=== PATIENT | male | born 1990 | race Caucasian/White ===

== ENCOUNTER 2018-08-01 10:52 | Emergency (ER) | payer OTHER ==
[2018-08-01 11:00] VITALS: BP 134/81; PULSE 91; TEMP 98.2; BMI 28.6
[2018-08-01] MEDS ORDERED: ALBUTEROL SO4 2.5/IPRATROPIUM 0.5 INH SOL 3 ML VIAL.NEB. NEB ONE ×2 (12:01→12:04)
--- NOTE | 2018-08-01 12:07 | PDOC ---
History of Present Illness - General Chief Complaint: Shortness of Breath Stated Complaint: chest pain, sob Time Seen by Provider: 08/01/18 11:44 History Source: Patient Exam Limitations: No Limitations - History of Present Illness Initial Comments: 08/01/18 12:03 Patient came to emergency department with complaints of acute onset of fevers, chills this morning, a cough that caused him to be short of breath. 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 Denies earache or sore throat however has a moist cough with thick yellow phlegm. Has taken no medication for relief of same. Timing/Duration: reports: just prior to arrival, getting worse Severity: reports: mild, moderate Possible Cause: Yes: smoke exposure Associated Symptoms: reports: cough, dizziness, fever/chills, lightheadedness, nasal congestion Past History - Travel Traveled outside of the country in the last 30 days: No Close contact w/someone who was outside of country & ill: No - Past Medical History Allergies/Adverse Reactions: Allergies Allergy/AdvReac Type Severity Reaction Status Date / Time No Known Allergies Allergy Verified 08/01/18 11:00 Home Medications: Ambulatory Orders NK [No Known Home Medication] 08/01/18 COPD: No DVT: No Diabetes: Yes (Pre-diabetic) - Suicide/Smoking/Psychosocial Hx Smoking History: Current every day smoker Number of Cigarettes Smoked Daily: 20 Information on smoking cessation initiated: Yes 'Breaking Loose' booklet given: 08/01/18 Hx Alcohol Use: No Drug/Substance Use Hx: No Substance Use Type: None Review of Systems - Review of Systems Able to Perform ROS?: Yes Is the patient limited [place]ian proficient: Yes Constitutional: Yes: Symptoms Reported, See HPI, Chills, Fever, Malaise HEENTM: Yes: Symptoms Reported, See HPI, Nose Congestion Respiratory: Yes: Symptoms reported, See HPI, Cough. No: Wheezing Cardiac (ROS): No: Symptoms Reported ABD/GI: No: Symptoms Reported Integumentary: Yes: Symptoms Reported, See HPI All Other Systems: Reviewed and Negative *Physical Exam - Vital Signs Last Vital Signs Temp Pulse Resp BP Pulse Ox 98.2 F 91 H 17 134/81 100 08/01/18 10:57 08/01/18 10:57 08/01/18 10:57 08/01/18 10:57 08/01/18 10:57 - Physical Exam General Appearance: Yes: Nourished, Appropriately Dressed, Apparent Distress, Mild Distress HEENT: positive: DASH, Normal ENT Inspection, TMs Normal, Pharynx Normal, Nasal Congestion, Rhinorrhea. negative: Pharyngeal Erythema, Sinus Tenderness Neck: positive: Supple. negative: Tender Respiratory/Chest: positive: Lungs Clear, Normal Breath Sounds. negative: Rhonchi, Wheezing Gastrointestinal/Abdominal: positive: Normal Bowel Sounds, Soft. 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 Influenza test negative, no improvement or changes in breath sounds after DuoNeb therefore will continue conservative treatments. *DC/Admit/Observation/Transfer Diagnosis at time of Disposition: Upper respiratory infection, viral - Discharge Dispostion Disposition: HOME Condition at time of disposition: Stable Decision to Admit order: No - Referrals - Patient Instructions Printed Discharge Instructions: DI for Viral Upper Respiratory Infection -- Adult Additional Instructions: Rest, drink lots of fluids: Teas, water, soups, Pedialyte Saltwater gargles Steamy showers/seem to face break up mucus Avoid contact with others until fevers and cough resolved Lots of handwashing and good hygiene Continue [id number] medications for symptomatic relief Tylenol or Motrin for fever and pain Followup with private physician in one to 2 days as needed Return to emergency department for worsened symptoms, fevers, dehydration - Post Discharge Activity Forms/Work/School Notes: Back to Work
--- NOTE | 2018-08-02 22:08 | EKG ---
Test Reason : Blood Pressure : / mmHG Vent. Rate : 078 BPM Atrial Rate : 078 BPM P-R Int : 146 ms QRS Dur : 088 ms QT Int : 354 ms P-R-T Axes : 061 030 044 degrees QTc Int : 403 ms NORMAL SINUS RHYTHM NONSPECIFIC T WAVE ABNORMALITY ABNORMAL ECG WHEN COMPARED WITH ECG OF 06-OCT-2008 12:56, NO SIGNIFICANT CHANGE WAS FOUND Confirmed by PHYLLIS LEE MD ([id number]) on 08/02/2018 10:08:12 PM Referred By: Confirmed By:PHYLLSI LEE MD
== END 2018-08-01 13:09 | disposition home or self-care (01) ==
LOC: JER 10:52 → JERFT 10:52
PROC: 3E0F7GC Introduction of Other Therapeutic Substance into Respiratory Tract, Via Natural or Artificial Opening (ICD-10-PCS; principal; 2018-08-01)
DX: J06.9 Acute upper respiratory infection, unspecified (principal); F17.210 Nicotine dependence, cigarettes, uncomplicated; R73.03 Prediabetes
CPT/HCPCS: 87804; 93005; 93010; 94640; 99281-25; J7620

== ENCOUNTER 2019-09-15 16:55 | Emergency (ER) | payer OTHER ==
[2019-09-15 17:13] VITALS: BMI 30.2
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
[2019-09-15 18:05] LABS: BASO % 0.6 % (0-2.0); EOS % 9.7 % (0-4.5); HEMATOCRIT 40.2 % (35.4-49); HEMOGLOBIN 13.5 GM/dL (11.7-16.9); LYMPH % 28.7 % (8-40); MCH 28.9 pg (25.7-33.7); MCHC 33.6 g/dl (32.0-35.9); MEAN CELL VOLUME 85.9 fl (80-96); MEAN PLT VOLUME 8.6 fl (7.5-11.1); MONO % 8.7 % (3.8-10.2); NEUT % 52.3 % (42.8-82.8); PLATELET COUNT 205 K/MM3 (134-434); RBC 4.68 M/mm3 (4.00-5.60); RDW 15.7 % (11.9-15.9)
[2019-09-15 18:29] LABS: ALBUMIN 3.8 g/dl (3.4-5.0); BILIRUBIN,TOTAL 0.7 mg/dL (0.2-1); CALCIUM 8.8 mg/dL (8.5-10.1); CREATININE 1.1 mg/dL (0.55-1.3); POTASSIUM 3.8 mmol/L (3.5-5.1); TOT PROT 7.5 g/dl (6.4-8.2)
[2019-09-15 20:47] LABS: EPI CELLS 0 /HPF (0-5/HPF); HYALINE CASTS 1 /lpf (0-8); PH,URINE 6.5 (5.0-8.0); URINE APPEARANCE CLEAR; URINE BACTERIA 2636.4 /hpf (NEGATIVE); URINE BILIRUBIN NEGATIVE (NEGATIVE); URINE COLOR YELLOW; URINE GLUCOSE (UA) NEGATIVE (NEGATIVE); URINE KETONE NEGATIVE (NEGATIVE); URINE LEUK ESTERASE 2+ (NEGATIVE); URINE NITRITE NEGATIVE (NEGATIVE); URINE PROTEIN 2+ (NEGATIVE); URINE RBC 20 /hpf (0-4); URINE UROBILINOGEN 0.2 mg/dL (0.2-1.0); URINE WBC 30 /hpf (0-5)
[2019-09-15] MEDS ORDERED: CEPHALEXIN MONOHYDRATE 500 MG CAPSULE (UD) PO ONE (20:51)
[2019-09-15] MEDS ORDERED: CEPHALEXIN MONOHYDRATE 500 MG CAPSULE (UD) ONE (20:59)
[2019-09-15 21:21] VITALS: BP 115/62; PULSE 72; TEMP 98.1
[2019-09-15 21:35] LABS: INR 1.17 (0.83-1.09); PROTHROMBIN TIME (PATIENT) 13.8 SEC (9.7-13.0)
== END 2019-09-15 21:20 | disposition home or self-care (01) ==
LOC: JER 16:55
DX: N30.00 Acute cystitis without hematuria (principal); Z86.718 Personal history of other venous thrombosis and embolism; Z79.01 Long term (current) use of anticoagulants; T14.8XXS Other injury of unspecified body region, sequela; V29.9XXS Motorcycle rider (driver) (passenger) injured in unspecified traffic accident, sequela; R73.03 Prediabetes; Z87.891 Personal history of nicotine dependence
CPT/HCPCS: 36415; 76775-TC; 76856-TC; 80053; 81003; 85025; 85610; 87086; 87186; 99282-25

== ENCOUNTER 2021-05-31 17:06 | Emergency (ER) | payer OTHER ==
[2021-05-31 17:13] VITALS: BP 134/77; PULSE 96; TEMP 97.8; BMI 32.8
[2021-05-31 19:22] LABS: BASO % 0.4 % (0-2.0); EOS % 5.1 % (0-4.5); HEMATOCRIT 38.9 % (35.4-49); HEMOGLOBIN 13.3 GM/dL (11.7-16.9); LYMPH % 17.1 % (8-40); MCH 29.6 pg (25.7-33.7); MCHC 34.2 g/dl (32.0-35.9); MEAN CELL VOLUME 86.4 fl (80-96); MEAN PLT VOLUME 8.2 fl (7.5-11.1); MONO % 6.5 % (3.8-10.2); NEUT % 70.9 % (42.8-82.8); PLATELET COUNT 261 10^3/uL (134-434); RBC 4.51 M/mm3 (4.00-5.60); RDW 14.6 % (11.9-15.9); WHITE BLOOD COUNT 9.2 K/mm3 (4.0-10.0)
[2021-05-31 19:30] LABS: CALCIUM 9.1 mg/dL (8.5-10.1)
[2021-05-31 19:31] LABS: ALBUMIN 3.7 g/dl (3.4-5.0); BLOOD UREA NITROGEN 15.5 mg/dL (7-18)
[2021-05-31 19:34] LABS: CREATININE 1.1 mg/dL (0.55-1.3)
[2021-05-31 19:36] LABS: BILIRUBIN,TOTAL 0.4 mg/dL (0.2-1)
[2021-05-31 19:50] LABS: EPI CELLS >36 /uL (0-25.1); HYALINE CASTS 33 /uL (0-3.1); URINE APPEARANCE TURBID; URINE BACTERIA >9,000 /uL (0-1359); URINE BILIRUBIN NEGATIVE (NEGATIVE); URINE COLOR YELLOW; URINE GLUCOSE (UA) NEGATIVE (NEGATIVE); URINE KETONE TRACE (NEGATIVE); URINE LEUK ESTERASE 3+ (NEGATIVE); URINE NITRITE POSITIVE (NEGATIVE); URINE PROTEIN 3+ (NEGATIVE); URINE WBC 7772 /uL (0-25.8)
[2021-05-31] MEDS ORDERED: CEFTRIAXONE 1,000 MG in DEXTROSE 5%-WATER - 50 ML IVPB ONE (20:02)
[2021-05-31] MEDS ORDERED: CEFTRIAXONE 1 GM/50 ML BAG ONE (20:07)
[2021-05-31 20:55] LABS: URINE RBC 1577.9 /uL (0-23.9)
== END 2021-05-31 20:59 | disposition home or self-care (01) ==
LOC: JER 17:06
DX: N39.0 Urinary tract infection, site not specified (principal)
CPT/HCPCS: 36415; 71046-TC-FY; 80053; 81003; 85025; 87086; 87186; 96374; 99284-25

== ENCOUNTER 2021-06-23 11:30 | Emergency (ER) | payer OTHER ==
[2021-06-23 12:57] VITALS: BMI 32.8
[2021-06-23 13:14] LABS: BASO % 0.4 % (0-2.0); EOS % 5.2 % (0-4.5); HEMOGLOBIN 13.9 GM/dL (11.7-16.9); MCHC 33.9 g/dl (32.0-35.9); MEAN CELL VOLUME 85.6 fl (80-96); MONO % 5.7 % (3.8-10.2); NEUT % 65.7 % (42.8-82.8); PLATELET COUNT 260 10^3/uL (134-434); RBC 4.79 M/mm3 (4.00-5.60); RDW 14.6 % (11.9-15.9); WHITE BLOOD COUNT 7.5 K/mm3 (4.0-10.0)
[2021-06-23 13:32] LABS: CHLORIDE 108 mmol/L (98-107); SODIUM 141 mmol/L (136-145)
[2021-06-23] MEDS ORDERED: ALBUTEROL SO4 0.083% IH SOL 2.5 MG/3 ML VIAL.NEB. NEB ONE (13:32)
[2021-06-23 13:34] LABS: ALBUMIN 3.9 g/dl (3.4-5.0); CALCIUM 8.9 mg/dL (8.5-10.1)
[2021-06-23 13:35] LABS: ANION GAP 7 MMOL/L (8-16); BLOOD UREA NITROGEN 11.1 mg/dL (7-18); CO2 25 mmol/L (21-32); GLUCOSE,RANDOM 92 mg/dL (74-106)
[2021-06-23 13:38] LABS: CREATININE 0.9 mg/dL (0.55-1.3); SGOT/AST 15 U/L (15-37); SGPT/ALT 24 U/L (13-61)
[2021-06-23 13:39] LABS: BILIRUBIN,TOTAL 0.6 mg/dL (0.2-1); TOT PROT 7.3 g/dl (6.4-8.2)
[2021-06-23 13:40] LABS: ALK PHOS 80 U/L (45-117)
[2021-06-23 13:43] LABS: N-TERMINAL BNP 47.9 pg/ml (5-125)
[2021-06-23] MEDS ORDERED: ALBUTEROL SO4 HFA INHALER IH ONE ×2 (13:44→14:40)
[2021-06-23] MEDS ORDERED: GABAPENTIN 100 MG CAPSULE PO ONE (15:03)
[2021-06-23 15:40] VITALS: BP 106/59; PULSE 67; TEMP 97.7
== END 2021-06-23 15:52 ==
LOC: JER 11:30
PROC: 3E0F7GC Introduction of Other Therapeutic Substance into Respiratory Tract, Via Natural or Artificial Opening (ICD-10-PCS; principal; 2021-06-23)
DX: R07.9 Chest pain, unspecified (principal); R06.2 Wheezing
CPT/HCPCS: 36415; 71046-TC-FY; 80053; 82550; 82553; 83880; 84484; 85025; 85379; 93005; 93010; 99285-25

== ENCOUNTER 2021-07-06 18:47 | Emergency (ER) | payer MEDICARE, OTHER ==
[2021-07-06 18:52] VITALS: TEMP 98.4; BMI 32.8
[2021-07-06 21:01] LABS: BASO % 0.5 % (0-2.0); EOS % 3.8 % (0-4.5); HEMATOCRIT 44.1 % (35.4-49); HEMOGLOBIN 14.9 GM/dL (11.7-16.9); LYMPH % 22.4 % (8-40); MCH 28.8 pg (25.7-33.7); MCHC 33.9 g/dl (32.0-35.9); NEUT % 65.3 % (42.8-82.8); PLATELET COUNT 285 10^3/uL (134-434); RBC 5.19 M/mm3 (4.00-5.60); RDW 14.8 % (11.9-15.9); WHITE BLOOD COUNT 14.9 K/mm3 (4.0-10.0)
[2021-07-06 21:20] LABS: ALBUMIN 4.2 g/dl (3.4-5.0); CALCIUM 9.1 mg/dL (8.5-10.1)
[2021-07-06 21:21] LABS: BLOOD UREA NITROGEN 15.6 mg/dL (7-18)
[2021-07-06 21:24] LABS: CREATININE 1.3 mg/dL (0.55-1.3)
[2021-07-06 21:25] LABS: BILIRUBIN,TOTAL 0.4 mg/dL (0.2-1)
[2021-07-06 23:39] LABS: BASO % 0.3 % (0-2.0); EOS % 3.3 % (0-4.5); HEMATOCRIT 40.5 % (35.4-49); HEMOGLOBIN 13.7 GM/dL (11.7-16.9); LYMPH % 17.5 % (8-40); MCHC 33.8 g/dl (32.0-35.9); MEAN CELL VOLUME 85.7 fl (80-96); MEAN PLT VOLUME 8.3 fl (7.5-11.1); MONO % 6.9 % (3.8-10.2); PLATELET COUNT 249 10^3/uL (134-434); RBC 4.72 M/mm3 (4.00-5.60); RDW 14.7 % (11.9-15.9); WHITE BLOOD COUNT 14.1 K/mm3 (4.0-10.0)
[2021-07-07 00:32] VITALS: BP 100/67; PULSE 97
== END 2021-07-07 00:37 | disposition home or self-care (01) ==
LOC: JER 18:47
DX: N36.8 Other specified disorders of urethra (principal); R33.9 Retention of urine, unspecified
CPT/HCPCS: 36415; 80053; 85025; 99283-25

== ENCOUNTER 2021-07-07 01:06 | Inpatient (IN) | payer MEDICARE, OTHER ==
[2021-07-07] MEDS ORDERED: ACETAMINOPHEN 1000 MG/100 ML VIAL (NON FORMULARY) IVPB ONE (01:13)
[2021-07-07] MEDS ORDERED: FUROSEMIDE 40 MG TABLET (FP) PO ONE (01:44)
[2021-07-07] MEDS ORDERED: GABAPENTIN 400 MG CAPSULE PO ONE (01:44)
[2021-07-07] MEDS ORDERED: FUROSEMIDE 40 MG TABLET (FP) ONE (02:16)
[2021-07-07] MEDS ORDERED: ACETAMINOPHEN INJECTION 100 ML IVPB ONE (02:16)
[2021-07-07 02:45] LABS: BASO % 0.3 % (0-2.0); EOS % 3.8 % (0-4.5); HEMATOCRIT 40.9 % (35.4-49); LYMPH % 18.1 % (8-40); MCH 28.7 pg (25.7-33.7); MCHC 34.1 g/dl (32.0-35.9); MEAN CELL VOLUME 84.1 fl (80-96); MEAN PLT VOLUME 8.1 fl (7.5-11.1); MONO % 8.5 % (3.8-10.2); NEUT % 69.3 % (42.8-82.8); PLATELET COUNT 253 10^3/uL (134-434); RBC 4.87 M/mm3 (4.00-5.60); RDW 14.5 % (11.9-15.9); WHITE BLOOD COUNT 12.5 K/mm3 (4.0-10.0)
[2021-07-07 02:59] LABS: INR 1.25 (0.83-1.09)
[2021-07-07 03:01] LABS: ACTIVATED PTT 35.6 SECONDS (25.2-36.5)
[2021-07-07] MEDS ORDERED: LIDOCAINE HCL 2% JELLY 10 ML CARTRIDGE ONE (04:48)
[2021-07-07] MEDS: GABAPENTIN 400 MG CAPSULE PO SCH ×3 (07:10→21:32)
[2021-07-07] MEDS ORDERED: BACLOFEN 10 MG TABLET (FP) ONE (10:07)
[2021-07-07] MEDS ORDERED: ENOXAPARIN NA (PORCINE) 40 MG/0.4 ML DISP.SYRIN SQ ONE (10:07)
[2021-07-07] MEDS: ENOXAPARIN NA (PORCINE) 40 MG/0.4 ML DISP.SYRIN SQ SCH (10:25)
[2021-07-07] MEDS: BACLOFEN 10 MG TABLET (FP) PO SCH ×2 (10:25→21:32)
[2021-07-07 11:25] LABS: BASO % 0.3 % (0-2.0); EOS % 4.2 % (0-4.5); HEMATOCRIT 42.7 % (35.4-49); HEMOGLOBIN 14.6 GM/dL (11.7-16.9); LYMPH % 19.5 % (8-40); MCH 29.5 pg (25.7-33.7); MCHC 34.3 g/dl (32.0-35.9); MEAN PLT VOLUME 8.2 fl (7.5-11.1); MONO % 8.7 % (3.8-10.2); NEUT % 67.3 % (42.8-82.8); PLATELET COUNT 262 10^3/uL (134-434); RBC 4.96 M/mm3 (4.00-5.60); RDW 14.6 % (11.9-15.9); WHITE BLOOD COUNT 9.1 K/mm3 (4.0-10.0)
[2021-07-07 11:53] LABS: ALBUMIN 3.9 g/dl (3.4-5.0); CALCIUM 8.9 mg/dL (8.5-10.1)
[2021-07-07 11:54] LABS: BLOOD UREA NITROGEN 16.1 mg/dL (7-18)
[2021-07-07 11:57] LABS: CREATININE 0.9 mg/dL (0.55-1.3)
[2021-07-07 11:58] LABS: BILIRUBIN,TOTAL 0.8 mg/dL (0.2-1); TOT PROT 7.5 g/dl (6.4-8.2)
[2021-07-07] MEDS ORDERED: MINERAL OIL ENEMA 133 ML ENEMA PR ONE (15:07)
[2021-07-07] MEDS ORDERED: PT OWN MED DRAWER 7, Y5N ONE ×2 (17:51→20:50)
[2021-07-07] MEDS: traMADol HCL 50 MG TABLET PO PRN (17:59)
[2021-07-07] MEDS: METHOCARBAMOL 500 MG TABLET PO SCH (21:32)
[2021-07-08] MEDS: GABAPENTIN 400 MG CAPSULE PO SCH ×3 (05:32→21:34)
[2021-07-08] MEDS: BACLOFEN 10 MG TABLET (FP) PO SCH ×2 (09:13→21:35)
[2021-07-08] MEDS: ENOXAPARIN NA (PORCINE) 40 MG/0.4 ML DISP.SYRIN SQ SCH (09:13)
[2021-07-08] MEDS: METHOCARBAMOL 500 MG TABLET PO SCH ×2 (09:14→21:34)
[2021-07-08] MEDS ORDERED: SENNOSIDES 8.6MG TABLET (FP) PO PRN (10:42)
[2021-07-08] MEDS: traMADol HCL 50 MG TABLET PO PRN (11:42)
[2021-07-08] MEDS: FUROSEMIDE 40 MG TABLET (FP) PO SCH (11:42)
[2021-07-08] MEDS ORDERED: cefTRIAXone SODIUM 1 GM VIAL ONE (15:00)
[2021-07-08] MEDS ORDERED: DEXTROSE 5%-WATER - 50 ML IVPB ONE (15:00)
[2021-07-08] MEDS: CEFTRIAXONE 1 GM in DEXTROSE 5%-WATER - 50 ML IVPB SCH (15:10)
[2021-07-08] MEDS: rOPINIRole HCL 0.5 MG TABLET PO SCH (21:34)
[2021-07-08] MEDS: POLYETHYLENE GLYCOL (HEALTHYLAX) 3350 17 GM PACKET PO SCH (21:34)
[2021-07-09] MEDS: GABAPENTIN 400 MG CAPSULE PO SCH ×3 (07:01→21:35)
[2021-07-09] MEDS ORDERED: cefTRIAXone SODIUM 1 GM VIAL ONE (10:09)
[2021-07-09] MEDS ORDERED: DEXTROSE 5%-WATER - 50 ML IVPB ONE (10:09)
[2021-07-09] MEDS ORDERED: PT OWN MED DRAWER 7, Y5N ONE (11:03)
[2021-07-09] MEDS: POLYETHYLENE GLYCOL (HEALTHYLAX) 3350 17 GM PACKET PO SCH ×2 (11:05→21:35)
[2021-07-09] MEDS: ENOXAPARIN NA (PORCINE) 40 MG/0.4 ML DISP.SYRIN SQ SCH (11:06)
[2021-07-09] MEDS: CEFTRIAXONE 1 GM in DEXTROSE 5%-WATER - 50 ML IVPB SCH (11:06)
[2021-07-09] MEDS: FUROSEMIDE 40 MG TABLET (FP) PO SCH (11:06)
[2021-07-09] MEDS: BACLOFEN 10 MG TABLET (FP) PO SCH ×2 (11:06→21:35)
[2021-07-09] MEDS: METHOCARBAMOL 500 MG TABLET PO SCH ×2 (11:06→21:36)
[2021-07-09] MEDS ORDERED: ALBUTEROL SO4 0.083% IH SOL 2.5 MG/3 ML VIAL.NEB. NEB PRN (13:18)
[2021-07-09 16:46] VITALS: BMI 30.5
[2021-07-09] MEDS: rOPINIRole HCL 0.5 MG TABLET PO SCH (21:36)
[2021-07-10] MEDS: GABAPENTIN 400 MG CAPSULE PO SCH ×3 (06:31→21:48)
[2021-07-10] MEDS ORDERED: cefTRIAXone SODIUM 1 GM VIAL ONE (10:36)
[2021-07-10] MEDS ORDERED: DEXTROSE 5%-WATER - 50 ML IVPB ONE (10:37)
[2021-07-10] MEDS: POLYETHYLENE GLYCOL (HEALTHYLAX) 3350 17 GM PACKET PO SCH ×2 (10:44→21:47)
[2021-07-10] MEDS: BACLOFEN 10 MG TABLET (FP) PO SCH ×2 (10:44→21:47)
[2021-07-10] MEDS: FUROSEMIDE 40 MG TABLET (FP) PO SCH (10:44)
[2021-07-10] MEDS: ENOXAPARIN NA (PORCINE) 40 MG/0.4 ML DISP.SYRIN SQ SCH (10:44)
[2021-07-10] MEDS: AMINO ACIDS/PROTEIN HYDROLYS 30 ML LIQUID.PKT PO SCH (10:44)
[2021-07-10] MEDS: MULTIVITAMINS (DAILY MVI) TABLET (FP) PO SCH (10:45)
[2021-07-10] MEDS: CEFTRIAXONE 1 GM in DEXTROSE 5%-WATER - 50 ML IVPB SCH (10:45)
[2021-07-10] MEDS ORDERED: PT OWN MED DRAWER 7, Y5N ONE (10:46)
[2021-07-10] MEDS: METHOCARBAMOL 500 MG TABLET PO SCH ×2 (11:10→21:48)
[2021-07-10] MEDS ORDERED: SODIUM PHOSPHATE/NA BIPHOS 133 ML ENEMA RC ONE (12:45)
[2021-07-10] MEDS: rOPINIRole HCL 0.5 MG TABLET PO SCH (21:48)
[2021-07-11] MEDS: GABAPENTIN 400 MG CAPSULE PO SCH ×3 (06:00→21:06)
[2021-07-11] MEDS ORDERED: traMADol HCL 50 MG TABLET PO PRN (08:25)
[2021-07-11] MEDS ORDERED: MINERAL OIL ENEMA 133 ML ENEMA RC PRN (08:27)
[2021-07-11] MEDS ORDERED: cefTRIAXone SODIUM 1 GM VIAL ONE (10:02)
[2021-07-11] MEDS ORDERED: PT OWN MED DRAWER 7, Y5N ONE ×2 (10:02→14:23)
[2021-07-11] MEDS ORDERED: DEXTROSE 5%-WATER - 50 ML IVPB ONE (10:02)
[2021-07-11] MEDS: AMINO ACIDS/PROTEIN HYDROLYS 30 ML LIQUID.PKT PO SCH (10:42)
[2021-07-11] MEDS: POLYETHYLENE GLYCOL (HEALTHYLAX) 3350 17 GM PACKET PO SCH ×2 (10:42→21:06)
[2021-07-11] MEDS: ENOXAPARIN NA (PORCINE) 40 MG/0.4 ML DISP.SYRIN SQ SCH (10:42)
[2021-07-11] MEDS: CEFTRIAXONE 1 GM in DEXTROSE 5%-WATER - 50 ML IVPB SCH (10:43)
[2021-07-11] MEDS: METHOCARBAMOL 500 MG TABLET PO SCH ×2 (10:43→21:06)
[2021-07-11] MEDS: BACLOFEN 10 MG TABLET (FP) PO SCH ×2 (10:44→21:06)
[2021-07-11] MEDS: MULTIVITAMINS (DAILY MVI) TABLET (FP) PO SCH (10:44)
[2021-07-11] MEDS: FUROSEMIDE 40 MG TABLET (FP) PO SCH (14:34)
[2021-07-11] MEDS: rOPINIRole HCL 0.5 MG TABLET PO SCH (21:06)
[2021-07-12] MEDS ORDERED: PT OWN MED DRAWER 7, Y5N ONE ×3 (03:04→20:47)
[2021-07-12] MEDS: GABAPENTIN 400 MG CAPSULE PO SCH ×3 (05:20→21:03)
[2021-07-12] MEDS ORDERED: cefTRIAXone SODIUM 1 GM VIAL ONE (08:59)
[2021-07-12] MEDS ORDERED: DEXTROSE 5%-WATER - 50 ML IVPB ONE (08:59)
[2021-07-12] MEDS: CEFTRIAXONE 1 GM in DEXTROSE 5%-WATER - 50 ML IVPB SCH (09:12)
[2021-07-12] MEDS: AMINO ACIDS/PROTEIN HYDROLYS 30 ML LIQUID.PKT PO SCH (09:12)
[2021-07-12] MEDS: BACLOFEN 10 MG TABLET (FP) PO SCH ×2 (09:12→21:01)
[2021-07-12] MEDS: MULTIVITAMINS (DAILY MVI) TABLET (FP) PO SCH (09:12)
[2021-07-12] MEDS: ENOXAPARIN NA (PORCINE) 40 MG/0.4 ML DISP.SYRIN SQ SCH (09:13)
[2021-07-12] MEDS: METHOCARBAMOL 500 MG TABLET PO SCH ×2 (09:13→21:03)
[2021-07-12] MEDS: FUROSEMIDE 40 MG TABLET (FP) PO SCH (09:13)
[2021-07-12] MEDS: POLYETHYLENE GLYCOL (HEALTHYLAX) 3350 17 GM PACKET PO SCH ×3 (09:13→21:01)
[2021-07-12 09:21] LABS: BASO % 0.2 % (0-2.0); EOS % 5.2 % (0-4.5); HEMATOCRIT 35.7 % (35.4-49); HEMOGLOBIN 12.1 GM/dL (11.7-16.9); LYMPH % 31.9 % (8-40); MCH 29.2 pg (25.7-33.7); MONO % 7.3 % (3.8-10.2); NEUT % 55.4 % (42.8-82.8); PLATELET COUNT 275 10^3/uL (134-434); RBC 4.15 M/mm3 (4.00-5.60); RDW 14.6 % (11.9-15.9); WHITE BLOOD COUNT 5.6 K/mm3 (4.0-10.0)
[2021-07-12 09:26] LABS: EPI CELLS 2 /uL (0-25.1); HYALINE CASTS 25 /uL (0-3.1); PH,URINE 6.5 (5.0-8.0); URINE APPEARANCE CLEAR; URINE BILIRUBIN NEGATIVE (NEGATIVE); URINE COLOR YELLOW; URINE GLUCOSE (UA) NEGATIVE (NEGATIVE); URINE KETONE NEGATIVE (NEGATIVE); URINE LEUK ESTERASE 3+ (NEGATIVE); URINE NITRITE POSITIVE (NEGATIVE); URINE PROTEIN NEGATIVE (NEGATIVE); URINE RBC 730 /uL (0-23.9); URINE UROBILINOGEN 0.2 mg/dL (0.2-1.0); URINE WBC 371 /uL (0-25.8)
[2021-07-12 09:46] LABS: ALBUMIN 3.3 g/dl (3.4-5.0); BLOOD UREA NITROGEN 14.5 mg/dL (7-18); CALCIUM 8.7 mg/dL (8.5-10.1); CREATININE 0.8 mg/dL (0.55-1.3)
[2021-07-12 09:49] LABS: BILIRUBIN,TOTAL 0.5 mg/dL (0.2-1)
[2021-07-12 09:50] LABS: TOT PROT 6.6 g/dl (6.4-8.2)
[2021-07-12] MEDS: COLLAGENASE CLOSTRIDIUM HIST. 30 GRAMS TUBE TP SCH (17:36)
[2021-07-12 20:07] LABS: URINE BACTERIA 870.4 /uL (0-1359)
[2021-07-12] MEDS: rOPINIRole HCL 0.5 MG TABLET PO SCH (21:02)
[2021-07-13] MEDS: GABAPENTIN 400 MG CAPSULE PO SCH ×2 (05:31→13:45)
[2021-07-13] MEDS: AMINO ACIDS/PROTEIN HYDROLYS 30 ML LIQUID.PKT PO SCH (09:00)
[2021-07-13] MEDS ORDERED: GABAPENTIN 400 MG CAPSULE PO ONE ×2 (10:10→20:38)
[2021-07-13] MEDS ORDERED: cefTRIAXone SODIUM 1 GM VIAL ONE (11:10)
[2021-07-13] MEDS ORDERED: PT OWN MED DRAWER 7, Y5N ONE (11:10)
[2021-07-13] MEDS ORDERED: DEXTROSE 5%-WATER - 50 ML IVPB ONE (11:10)
[2021-07-13] MEDS: FUROSEMIDE 40 MG TABLET (FP) PO SCH (11:14)
[2021-07-13] MEDS: ENOXAPARIN NA (PORCINE) 40 MG/0.4 ML DISP.SYRIN SQ SCH (11:14)
[2021-07-13] MEDS: POLYETHYLENE GLYCOL (HEALTHYLAX) 3350 17 GM PACKET PO SCH (11:14)
[2021-07-13] MEDS: CEFTRIAXONE 1 GM in DEXTROSE 5%-WATER - 50 ML IVPB SCH (11:15)
[2021-07-13] MEDS: METHOCARBAMOL 500 MG TABLET PO SCH ×2 (11:15→12:15)
[2021-07-13] MEDS: MULTIVITAMINS (DAILY MVI) TABLET (FP) PO SCH (11:15)
[2021-07-13] MEDS: BACLOFEN 10 MG TABLET (FP) PO SCH ×2 (11:18→12:15)
[2021-07-13] MEDS: COLLAGENASE CLOSTRIDIUM HIST. 30 GRAMS TUBE TP SCH (14:11)
[2021-07-13] MEDS ORDERED: ONDANSETRON 4 MG/2 ML VIAL IVPUSH PRN (15:24)
[2021-07-13] MEDS ORDERED: LIDOCAINE HCL/PF 2% SDV 5ML VIAL ONE (15:28)
[2021-07-13] MEDS ORDERED: MIDAZOLAM HCL 2 MG/2 ML SINGLE DOSE VIAL ONE (15:30)
[2021-07-13] MEDS ORDERED: PROPOFOL 20 ML ONE (15:30)
[2021-07-13] MEDS ORDERED: LACTATED RINGERS SOLUTION 1,000 ML IV SCH (15:30)
[2021-07-13] MEDS ORDERED: ceFAZolin SODIUM 1 GM VIAL IVPB ONE (16:35)
[2021-07-13] MEDS ORDERED: ceFAZolin SODIUM 1 GM VIAL ONE (16:36)
[2021-07-13] MEDS ORDERED: ALBUTEROL SO4 HFA INHALER IH PRN (17:13)
[2021-07-13] MEDS ORDERED: BACLOFEN 10 MG TABLET (FP) PO ONE (20:38)
[2021-07-13] MEDS: CEPHALEXIN MONOHYDRATE 500 MG CAPSULE (UD) PO SCH (20:59)
[2021-07-13] MEDS: NYSTATIN/TRIAMCINOLONE TOPICAL CREAM 15 GM TUBE TP SCH (21:00)
[2021-07-14] MEDS: CEPHALEXIN MONOHYDRATE 500 MG CAPSULE (UD) PO SCH ×3 (05:19→21:26)
[2021-07-14] MEDS ORDERED: SODIUM PHOSPHATE/NA BIPHOS 133 ML ENEMA RC ONE (06:00)
[2021-07-14] MEDS ORDERED: traMADol HCL 50 MG TABLET PO PRN (09:45)
[2021-07-14] MEDS ORDERED: PATIENT'S OWN MEDICATION (NON-FORMULARY) (Becaplermin [Regranex] 15 GM Gel..Gram.) TP SCH (10:00)
[2021-07-14] MEDS ORDERED: PT OWN MED DRAWER 7, Y5N ONE (10:42)
[2021-07-14] MEDS: METHOCARBAMOL 500 MG TABLET PO SCH ×2 (10:59→21:27)
[2021-07-14] MEDS: BACLOFEN 10 MG TABLET (FP) PO SCH ×2 (10:59→21:26)
[2021-07-14] MEDS: MULTIVITAMINS (DAILY MVI) TABLET (FP) PO SCH (11:00)
[2021-07-14] MEDS: TAMSULOSIN HCL 0.4 MG CAP PO SCH (11:00)
[2021-07-14] MEDS: CHOLECALCIFEROL (VIT D3) 400 UNIT (10 MCG) TABLET PO SCH (11:00)
[2021-07-14] MEDS: NYSTATIN/TRIAMCINOLONE TOPICAL CREAM 15 GM TUBE TP SCH ×2 (11:01→21:27)
[2021-07-14] MEDS: MINERAL OIL ENEMA 133 ML ENEMA RC SCH (12:51)
[2021-07-14] MEDS: POLYETHYLENE GLYCOL (HEALTHYLAX) 3350 17 GM PACKET PO SCH (14:51)
[2021-07-14] MEDS: GABAPENTIN 400 MG CAPSULE PO SCH ×2 (14:51→21:26)
[2021-07-14] MEDS: FUROSEMIDE 20 MG TABLET (FP) PO SCH (14:52)
[2021-07-14] MEDS: NYSTATIN POWDER 100,000 UNITS/GM - 15 GM TOPICAL POWDER TP SCH (19:09)
[2021-07-15] MEDS: CEPHALEXIN MONOHYDRATE 500 MG CAPSULE (UD) PO SCH ×3 (08:24→22:05)
[2021-07-15] MEDS: GABAPENTIN 400 MG CAPSULE PO SCH ×3 (08:25→22:05)
[2021-07-15] MEDS: TAMSULOSIN HCL 0.4 MG CAP PO SCH (08:25)
[2021-07-15 10:46] LABS: HEMATOCRIT 35.5 % (35.4-49); MCH 29.3 pg (25.7-33.7); MCHC 33.8 g/dl (32.0-35.9); MEAN CELL VOLUME 86.7 fl (80-96); MEAN PLT VOLUME 8.1 fl (7.5-11.1); PLATELET COUNT 256 10^3/uL (134-434); RDW 14.7 % (11.9-15.9); WHITE BLOOD COUNT 5.5 K/mm3 (4.0-10.0)
[2021-07-15 11:10] LABS: ALBUMIN 3.2 g/dl (3.4-5.0); BLOOD UREA NITROGEN 10.6 mg/dL (7-18); CALCIUM 8.6 mg/dL (8.5-10.1)
[2021-07-15 11:15] LABS: BILIRUBIN,TOTAL 0.4 mg/dL (0.2-1); TOT PROT 6.4 g/dl (6.4-8.2)
[2021-07-15 11:17] LABS: CREATININE 0.9 mg/dL (0.55-1.3)
[2021-07-15] MEDS: METHOCARBAMOL 500 MG TABLET PO SCH ×2 (11:32→22:06)
[2021-07-15] MEDS: NYSTATIN/TRIAMCINOLONE TOPICAL CREAM 15 GM TUBE TP SCH ×2 (11:32→22:06)
[2021-07-15] MEDS: BACLOFEN 10 MG TABLET (FP) PO SCH ×2 (11:32→22:06)
[2021-07-15] MEDS: MULTIVITAMINS (DAILY MVI) TABLET (FP) PO SCH (11:32)
[2021-07-15] MEDS: AMINO ACIDS/PROTEIN HYDROLYS 30 ML LIQUID.PKT PO SCH (11:33)
[2021-07-15] MEDS: POLYETHYLENE GLYCOL (HEALTHYLAX) 3350 17 GM PACKET PO SCH (11:33)
[2021-07-15] MEDS: NYSTATIN POWDER 100,000 UNITS/GM - 15 GM TOPICAL POWDER TP SCH (11:33)
[2021-07-15] MEDS ORDERED: PT OWN MED DRAWER 7, Y5N ONE (13:22)
[2021-07-15] MEDS: CHOLECALCIFEROL (VIT D3) 400 UNIT (10 MCG) TABLET PO SCH (14:00)
[2021-07-15] MEDS: FUROSEMIDE 20 MG TABLET (FP) PO SCH (14:03)
[2021-07-15] MEDS: RIVAROXABAN 20 MG TABLET PO SCH (18:57)
[2021-07-16] MEDS: CEPHALEXIN MONOHYDRATE 500 MG CAPSULE (UD) PO SCH ×2 (05:03→13:04)
[2021-07-16] MEDS ORDERED: PT OWN MED DRAWER 7, Y5N ONE (09:14)
[2021-07-16] MEDS: TAMSULOSIN HCL 0.4 MG CAP PO SCH (09:21)
[2021-07-16] MEDS: AMINO ACIDS/PROTEIN HYDROLYS 30 ML LIQUID.PKT PO SCH (09:21)
[2021-07-16] MEDS: CHOLECALCIFEROL (VIT D3) 400 UNIT (10 MCG) TABLET PO SCH (09:21)
[2021-07-16] MEDS: BACLOFEN 10 MG TABLET (FP) PO SCH (09:21)
[2021-07-16] MEDS: MULTIVITAMINS (DAILY MVI) TABLET (FP) PO SCH (09:21)
[2021-07-16] MEDS: METHOCARBAMOL 500 MG TABLET PO SCH (09:21)
[2021-07-16] MEDS: FUROSEMIDE 20 MG TABLET (FP) PO SCH (09:21)
[2021-07-16] MEDS: GABAPENTIN 400 MG CAPSULE PO SCH ×2 (09:21→13:04)
[2021-07-16] MEDS: POLYETHYLENE GLYCOL (HEALTHYLAX) 3350 17 GM PACKET PO SCH (09:22)
[2021-07-16] MEDS: NYSTATIN/TRIAMCINOLONE TOPICAL CREAM 15 GM TUBE TP SCH (09:32)
[2021-07-16] MEDS: NYSTATIN POWDER 100,000 UNITS/GM - 15 GM TOPICAL POWDER TP SCH (09:32)
[2021-07-16 12:09] VITALS: PULSE 71
[2021-07-16 15:37] VITALS: BP 124/59; TEMP 98.6
[2021-07-16] MEDS: MINERAL OIL ENEMA 133 ML ENEMA RC SCH (17:09)
[2021-07-16] MEDS: RIVAROXABAN 20 MG TABLET PO SCH (17:17)
== END 2021-07-16 17:34 | disposition home or self-care (01) | DRG 663 ==
LOC: JER 01:06 → JERBED 03:56 → J5S 12:53
PROVIDERS: ADMIT Internal Medicine; ATTEND Internal Medicine
PROC: 0TF Urinary System, Fragmentation (ICD-10-PCS; 2021-07-13)
PROC: 0T9B00Z Drainage of Bladder with Drainage Device, Open Approach (ICD-10-PCS; principal; 2021-07-13 15:00)
DX: T83.091A Other mechanical complication of indwelling urethral catheter, initial encounter (principal); N39.0 Urinary tract infection, site not specified; G82.20 Paraplegia, unspecified; N31.9 Neuromuscular dysfunction of bladder, unspecified; R31.0 Gross hematuria; R14.0 Abdominal distension (gaseous); D72.829 Elevated white blood cell count, unspecified; Z79.01 Long term (current) use of anticoagulants; F17.210 Nicotine dependence, cigarettes, uncomplicated; M54.9 Dorsalgia, unspecified; L89.312 Pressure ulcer of right buttock, stage 2; L89.620 Pressure ulcer of left heel, unstageable; L89.610 Pressure ulcer of right heel, unstageable; Y83.9 Surgical procedure, unspecified as the cause of abnormal reaction of the patient, or of later complication, without mention of misadventure at the time of the procedure; E66.9 Obesity, unspecified; Z68.30 Body mass index [BMI] 30.0-30.9, adult; R19.30 Abdominal rigidity, unspecified site
CPT/HCPCS: 36415; 76775-TC; 76856-TC; 80053; 81003; 85025; 85027; 85610; 85730; 86850; 86900; 86901; 87040; 87086; 87186; 93005; 93010; 94010; 94640; 94760; 99285-25; C9803; J0131; J0475; U0003; U0005

== ENCOUNTER 2021-07-21 13:57 | Emergency (ER) | payer MEDICARE, OTHER ==
[2021-07-21 14:22] VITALS: BP 146/83; PULSE 64; TEMP 98.1; BMI 30.5
[2021-07-21 16:36] LABS: BASO % 0.3 % (0-2.0); EOS % 7.4 % (0-4.5); HEMATOCRIT 39.8 % (35.4-49); HEMOGLOBIN 13.3 GM/dL (11.7-16.9); LYMPH % 25.8 % (8-40); MCH 28.8 pg (25.7-33.7); MCHC 33.4 g/dl (32.0-35.9); MEAN CELL VOLUME 86.2 fl (80-96); MEAN PLT VOLUME 8.3 fl (7.5-11.1); MONO % 9.2 % (3.8-10.2); NEUT % 57.3 % (42.8-82.8); PLATELET COUNT 296 10^3/uL (134-434); RBC 4.62 M/mm3 (4.00-5.60); RDW 14.8 % (11.9-15.9); WHITE BLOOD COUNT 8.4 K/mm3 (4.0-10.0)
[2021-07-21 16:43] LABS: EPI CELLS 14 /uL (0-25.1); HYALINE CASTS 1 /uL (0-3.1); PH,URINE 6.5 (5.0-8.0); URINE APPEARANCE CLEAR; URINE BACTERIA 4050 /uL (0-1359); URINE BILIRUBIN NEGATIVE (NEGATIVE); URINE COLOR YELLOW; URINE GLUCOSE (UA) NEGATIVE (NEGATIVE); URINE KETONE NEGATIVE (NEGATIVE); URINE LEUK ESTERASE 2+ (NEGATIVE); URINE NITRITE NEGATIVE (NEGATIVE); URINE PROTEIN 2+ (NEGATIVE); URINE RBC 907 /uL (0-23.9); URINE UROBILINOGEN 0.2 mg/dL (0.2-1.0); URINE WBC 61 /uL (0-25.8)
[2021-07-21 16:46] LABS: BLOOD UREA NITROGEN 13.9 mg/dL (7-18)
[2021-07-21 16:49] LABS: CREATININE 0.9 mg/dL (0.55-1.3)
[2021-07-21 16:50] LABS: BILIRUBIN,TOTAL 0.6 mg/dL (0.2-1); TOT PROT 7.7 g/dl (6.4-8.2)
[2021-07-21 16:53] LABS: ALBUMIN 3.9 g/dl (3.4-5.0)
== END 2021-07-21 17:46 | disposition home or self-care (01) ==
LOC: JER 13:57
DX: R31.9 Hematuria, unspecified (principal)
CPT/HCPCS: 36415; 76857; 80053; 81003; 85025; 87086; 87186; 99284-25

== ENCOUNTER 2021-07-26 15:28 | Inpatient (IN) | payer MEDICARE, OTHER ==
[2021-07-26 18:19] LABS: BASO % 0.3 % (0-2.0); EOS % 4.3 % (0-4.5); HEMATOCRIT 35.3 % (35.4-49); HEMOGLOBIN 11.9 GM/dL (11.7-16.9); LYMPH % 25.7 % (8-40); MCH 28.3 pg (25.7-33.7); MCHC 33.6 g/dl (32.0-35.9); MEAN CELL VOLUME 84.1 fl (80-96); MEAN PLT VOLUME 7.8 fl (7.5-11.1); MONO % 10.7 % (3.8-10.2); PLATELET COUNT 289 10^3/uL (134-434); RDW 14.3 % (11.9-15.9); WHITE BLOOD COUNT 9.9 K/mm3 (4.0-10.0)
[2021-07-26 18:26] LABS: INR 2.27 (0.83-1.09); PROTHROMBIN TIME (PATIENT) 27.7 SEC (9.7-13.0)
[2021-07-26 18:29] LABS: ACTIVATED PTT 42.9 SECONDS (25.2-36.5)
[2021-07-26 18:51] LABS: CHLORIDE 105 mmol/L (98-107); SODIUM 138 mmol/L (136-145)
[2021-07-26 18:55] LABS: BLOOD UREA NITROGEN 11.2 mg/dL (7-18)
[2021-07-26 18:56] LABS: CALCIUM 8.6 mg/dL (8.5-10.1)
[2021-07-26 18:57] LABS: ALBUMIN 3.5 g/dl (3.4-5.0); ANION GAP 8 MMOL/L (8-16); CO2 25 mmol/L (21-32); GLUCOSE,RANDOM 75 mg/dL (74-106)
[2021-07-26 18:59] LABS: CREATININE 0.8 mg/dL (0.55-1.3); SGOT/AST 39 U/L (15-37); SGPT/ALT 30 U/L (13-61)
[2021-07-26 19:01] LABS: TOT PROT 7.2 g/dl (6.4-8.2)
[2021-07-26 19:02] LABS: ALK PHOS 70 U/L (45-117)
[2021-07-26] MEDS ORDERED: ALBUTEROL SO4 HFA INHALER IH SCH (22:45)
[2021-07-26] MEDS ORDERED: PIPERACILLIN/TAZOB 3.375 GM 3.375 GM in DEXTROSE 5%-WATER - 50 ML IVPB ONE (22:47)
[2021-07-26] MEDS ORDERED: ALBUTEROL SO4 HFA INHALER IH ONE (22:57)
[2021-07-26] MEDS ORDERED: GABAPENTIN 100 MG CAPSULE ONE (22:57)
[2021-07-26] MEDS ORDERED: PIPERACILLIN/TAZOB 3.375 GM 3.375 GM/50 ML BAG IVPB ONE (22:58)
[2021-07-26] MEDS: GABAPENTIN 400 MG CAPSULE PO SCH (23:10)
[2021-07-27] MEDS ORDERED: ALBUTEROL SO4 HFA INHALER IH PRN (02:15)
[2021-07-27] MEDS: ACETAMINOPHEN 325 MG TABLET (FP) PO PRN (02:21)
[2021-07-27] MEDS ORDERED: DEXTROSE 5%-WATER - 50 ML IVPB ONE ×3 (05:34→16:25)
[2021-07-27] MEDS ORDERED: PIPERACILLIN/TAZOBACTAM 3.375 GM VIAL IVPB ONE ×3 (05:34→16:25)
[2021-07-27] MEDS: GABAPENTIN 400 MG CAPSULE PO SCH ×3 (05:36→21:02)
[2021-07-27] MEDS: traMADol HCL 50 MG TABLET PO PRN ×2 (05:36→16:26)
[2021-07-27] MEDS: PIPERACILLIN/TAZOB 3.375 GM 3.375 GM in DEXTROSE 5%-WATER - 50 ML IVPB SCH ×3 (06:15→17:48)
[2021-07-27] MEDS ORDERED: PT OWN MED DRAWER 7, Y5N ONE ×2 (07:38→09:28)
[2021-07-27 07:49] LABS: BASO % 0.4 % (0-2.0); HEMATOCRIT 34.1 % (35.4-49); HEMOGLOBIN 11.4 GM/dL (11.7-16.9); MCH 28.4 pg (25.7-33.7); MCHC 33.4 g/dl (32.0-35.9); MEAN CELL VOLUME 85.1 fl (80-96); MEAN PLT VOLUME 8.2 fl (7.5-11.1); NEUT % 66.6 % (42.8-82.8); PLATELET COUNT 287 10^3/uL (134-434); RBC 4.01 M/mm3 (4.00-5.60); RDW 14.3 % (11.9-15.9); WHITE BLOOD COUNT 8.6 K/mm3 (4.0-10.0)
[2021-07-27] MEDS ORDERED: PATIENT'S OWN MEDICATION (NON-FORMULARY) (Mirabegron [Myrbetriq] 25 MG Tab.Er.24h) PO SCH (10:00)
[2021-07-27] MEDS: FUROSEMIDE 40 MG TABLET (FP) PO SCH (10:34)
[2021-07-27] MEDS: NYSTATIN POWDER 100,000 UNITS/GM - 15 GM TOPICAL POWDER TP SCH (10:34)
[2021-07-27] MEDS ORDERED: MINERAL OIL ENEMA 133 ML ENEMA RC SCH (12:45)
[2021-07-27] MEDS: COLLAGENASE CLOSTRIDIUM HIST. 30 GRAMS TUBE TP SCH (13:36)
[2021-07-27] MEDS: RIVAROXABAN 20 MG TABLET PO SCH (17:48)
[2021-07-27] MEDS: DOCUSATE SODIUM 100 MG CAPSULE (FP) PO SCH (21:01)
[2021-07-28] MEDS ORDERED: DEXTROSE 5%-WATER - 50 ML IVPB ONE ×3 (01:45→15:58)
[2021-07-28] MEDS ORDERED: PIPERACILLIN/TAZOBACTAM 3.375 GM VIAL IVPB ONE ×3 (01:45→15:58)
[2021-07-28] MEDS ORDERED: PIPERACILLIN/TAZOB 3.375 GM 3.375 GM in DEXTROSE 5%-WATER - 50 ML IVPB SCH (02:00)
[2021-07-28] MEDS: PIPERACILLIN/TAZOB 3.375 GM 3.375 GM in DEXTROSE 5%-WATER - 50 ML IVPB SCH ×3 (02:09→17:12)
[2021-07-28] MEDS: GABAPENTIN 400 MG CAPSULE PO SCH ×3 (05:44→21:19)
[2021-07-28] MEDS ORDERED: MINERAL OIL ENEMA 133 ML ENEMA RC SCH (06:00)
[2021-07-28] MEDS: FUROSEMIDE 40 MG TABLET (FP) PO SCH (09:47)
[2021-07-28] MEDS: NYSTATIN POWDER 100,000 UNITS/GM - 15 GM TOPICAL POWDER TP SCH (09:47)
[2021-07-28] MEDS ORDERED: SODIUM PHOSPHATE/NA BIPHOS 133 ML ENEMA PR SCH (11:30)
[2021-07-28] MEDS: POLYETHYLENE GLYCOL (HEALTHYLAX) 3350 17 GM PACKET PO SCH (14:23)
[2021-07-28] MEDS: COLLAGENASE CLOSTRIDIUM HIST. 30 GRAMS TUBE TP SCH (14:25)
[2021-07-28 14:55] VITALS: BMI 28.1
[2021-07-28] MEDS: RIVAROXABAN 20 MG TABLET PO SCH (17:12)
[2021-07-28] MEDS: AMINO ACIDS/PROTEIN HYDROLYS 30 ML LIQUID.PKT PO SCH (17:12)
[2021-07-28] MEDS: DOCUSATE SODIUM 100 MG CAPSULE (FP) PO SCH (21:20)
[2021-07-29] MEDS ORDERED: PIPERACILLIN/TAZOBACTAM 3.375 GM VIAL IVPB ONE ×3 (02:57→17:45)
[2021-07-29] MEDS ORDERED: DEXTROSE 5%-WATER - 50 ML IVPB ONE ×3 (02:57→17:45)
[2021-07-29] MEDS: PIPERACILLIN/TAZOB 3.375 GM 3.375 GM in DEXTROSE 5%-WATER - 50 ML IVPB SCH ×3 (02:59→18:05)
[2021-07-29] MEDS: GABAPENTIN 400 MG CAPSULE PO SCH ×3 (06:51→22:05)
[2021-07-29] MEDS ORDERED: PT OWN MED DRAWER 7, Y5N ONE (10:55)
[2021-07-29] MEDS: FUROSEMIDE 40 MG TABLET (FP) PO SCH (10:59)
[2021-07-29] MEDS: POLYETHYLENE GLYCOL (HEALTHYLAX) 3350 17 GM PACKET PO SCH (10:59)
[2021-07-29] MEDS: NYSTATIN POWDER 100,000 UNITS/GM - 15 GM TOPICAL POWDER TP SCH (10:59)
[2021-07-29] MEDS: MULTIVITAMINS (DAILY MVI) TABLET (FP) PO SCH (10:59)
[2021-07-29] MEDS: AMINO ACIDS/PROTEIN HYDROLYS 30 ML LIQUID.PKT PO SCH ×2 (10:59→18:05)
[2021-07-29] MEDS: SODIUM PHOSPHATE/NA BIPHOS 133 ML ENEMA RC SCH (11:43)
[2021-07-29] MEDS: RIVAROXABAN 20 MG TABLET PO SCH (18:05)
[2021-07-29] MEDS: COLLAGENASE CLOSTRIDIUM HIST. 30 GRAMS TUBE TP SCH (18:28)
[2021-07-29] MEDS: DOCUSATE SODIUM 100 MG CAPSULE (FP) PO SCH (22:06)
[2021-07-30] MEDS ORDERED: DEXTROSE 5%-WATER - 50 ML IVPB ONE ×3 (01:56→18:06)
[2021-07-30] MEDS ORDERED: PIPERACILLIN/TAZOBACTAM 3.375 GM VIAL IVPB ONE ×3 (01:56→18:05)
[2021-07-30] MEDS: PIPERACILLIN/TAZOB 3.375 GM 3.375 GM in DEXTROSE 5%-WATER - 50 ML IVPB SCH ×3 (02:07→18:11)
[2021-07-30] MEDS: GABAPENTIN 400 MG CAPSULE PO SCH ×3 (06:53→21:20)
[2021-07-30] MEDS: AMINO ACIDS/PROTEIN HYDROLYS 30 ML LIQUID.PKT PO SCH ×2 (08:34→18:12)
[2021-07-30] MEDS: FUROSEMIDE 40 MG TABLET (FP) PO SCH (10:49)
[2021-07-30] MEDS: MULTIVITAMINS (DAILY MVI) TABLET (FP) PO SCH (10:49)
[2021-07-30] MEDS: POLYETHYLENE GLYCOL (HEALTHYLAX) 3350 17 GM PACKET PO SCH (10:50)
[2021-07-30] MEDS: NYSTATIN POWDER 100,000 UNITS/GM - 15 GM TOPICAL POWDER TP SCH (10:54)
[2021-07-30] MEDS ORDERED: SODIUM CHLORIDE 250 ML IV ONE (17:29)
[2021-07-30] MEDS: RIVAROXABAN 20 MG TABLET PO SCH (18:12)
[2021-07-30] MEDS: COLLAGENASE CLOSTRIDIUM HIST. 30 GRAMS TUBE TP SCH (18:13)
[2021-07-30] MEDS: DOCUSATE SODIUM 100 MG CAPSULE (FP) PO SCH (21:20)
[2021-07-31] MEDS ORDERED: PIPERACILLIN/TAZOBACTAM 3.375 GM VIAL IVPB ONE ×3 (01:01→18:31)
[2021-07-31] MEDS ORDERED: DEXTROSE 5%-WATER - 50 ML IVPB ONE ×3 (01:01→18:32)
[2021-07-31] MEDS: PIPERACILLIN/TAZOB 3.375 GM 3.375 GM in DEXTROSE 5%-WATER - 50 ML IVPB SCH ×3 (02:37→18:35)
[2021-07-31] MEDS: SODIUM PHOSPHATE/NA BIPHOS 133 ML ENEMA RC SCH (05:54)
[2021-07-31] MEDS: GABAPENTIN 400 MG CAPSULE PO SCH ×3 (05:55→21:37)
[2021-07-31] MEDS: AMINO ACIDS/PROTEIN HYDROLYS 30 ML LIQUID.PKT PO SCH ×2 (10:24→18:35)
[2021-07-31] MEDS: MULTIVITAMINS (DAILY MVI) TABLET (FP) PO SCH (10:25)
[2021-07-31] MEDS: POLYETHYLENE GLYCOL (HEALTHYLAX) 3350 17 GM PACKET PO SCH (10:25)
[2021-07-31] MEDS: FUROSEMIDE 40 MG TABLET (FP) PO SCH (10:25)
[2021-07-31] MEDS: NYSTATIN POWDER 100,000 UNITS/GM - 15 GM TOPICAL POWDER TP SCH (14:23)
[2021-07-31] MEDS: BACLOFEN 10 MG TABLET (FP) PO SCH ×2 (14:23→21:37)
[2021-07-31] MEDS: COLLAGENASE CLOSTRIDIUM HIST. 30 GRAMS TUBE TP SCH (14:23)
[2021-07-31] MEDS ORDERED: GABAPENTIN 300 MG CAPSULE PO ONE (18:26)
[2021-07-31] MEDS: RIVAROXABAN 20 MG TABLET PO SCH (18:35)
[2021-07-31] MEDS: DOCUSATE SODIUM 100 MG CAPSULE (FP) PO SCH (21:37)
[2021-08-01] MEDS: PIPERACILLIN/TAZOB 3.375 GM 3.375 GM in DEXTROSE 5%-WATER - 50 ML IVPB SCH ×3 (03:15→17:01)
[2021-08-01] MEDS ORDERED: PIPERACILLIN/TAZOBACTAM 3.375 GM VIAL IVPB ONE ×3 (03:42→16:32)
[2021-08-01] MEDS ORDERED: DEXTROSE 5%-WATER - 50 ML IVPB ONE ×3 (03:42→16:32)
[2021-08-01] MEDS: GABAPENTIN 400 MG CAPSULE PO SCH ×3 (06:06→21:32)
[2021-08-01] MEDS: AMINO ACIDS/PROTEIN HYDROLYS 30 ML LIQUID.PKT PO SCH ×2 (10:13→16:30)
[2021-08-01] MEDS: POLYETHYLENE GLYCOL (HEALTHYLAX) 3350 17 GM PACKET PO SCH (10:13)
[2021-08-01] MEDS: MULTIVITAMINS (DAILY MVI) TABLET (FP) PO SCH (10:14)
[2021-08-01] MEDS: BACLOFEN 10 MG TABLET (FP) PO SCH ×2 (10:14→21:32)
[2021-08-01] MEDS: FUROSEMIDE 40 MG TABLET (FP) PO SCH (10:14)
[2021-08-01] MEDS: NYSTATIN POWDER 100,000 UNITS/GM - 15 GM TOPICAL POWDER TP SCH (10:16)
[2021-08-01] MEDS: COLLAGENASE CLOSTRIDIUM HIST. 30 GRAMS TUBE TP SCH (10:16)
[2021-08-01] MEDS: RIVAROXABAN 20 MG TABLET PO SCH (17:01)
[2021-08-01] MEDS: DOCUSATE SODIUM 100 MG CAPSULE (FP) PO SCH (21:32)
[2021-08-02] MEDS ORDERED: PIPERACILLIN/TAZOBACTAM 3.375 GM VIAL IVPB ONE ×3 (01:35→17:26)
[2021-08-02] MEDS ORDERED: DEXTROSE 5%-WATER - 50 ML IVPB ONE ×3 (01:36→17:28)
[2021-08-02] MEDS: PIPERACILLIN/TAZOB 3.375 GM 3.375 GM in DEXTROSE 5%-WATER - 50 ML IVPB SCH ×3 (02:54→17:44)
[2021-08-02] MEDS: GABAPENTIN 400 MG CAPSULE PO SCH ×3 (06:30→21:25)
[2021-08-02] MEDS: SODIUM PHOSPHATE/NA BIPHOS 133 ML ENEMA RC SCH (06:30)
[2021-08-02] MEDS: MULTIVITAMINS (DAILY MVI) TABLET (FP) PO SCH (10:56)
[2021-08-02] MEDS: FUROSEMIDE 40 MG TABLET (FP) PO SCH (10:57)
[2021-08-02] MEDS: BACLOFEN 10 MG TABLET (FP) PO SCH ×2 (10:57→21:25)
[2021-08-02] MEDS: AMINO ACIDS/PROTEIN HYDROLYS 30 ML LIQUID.PKT PO SCH ×2 (10:58→17:45)
[2021-08-02] MEDS: NYSTATIN POWDER 100,000 UNITS/GM - 15 GM TOPICAL POWDER TP SCH (10:58)
[2021-08-02] MEDS: POLYETHYLENE GLYCOL (HEALTHYLAX) 3350 17 GM PACKET PO SCH (10:59)
[2021-08-02] MEDS: RIVAROXABAN 20 MG TABLET PO SCH (17:45)
[2021-08-02] MEDS: COLLAGENASE CLOSTRIDIUM HIST. 30 GRAMS TUBE TP SCH (17:46)
[2021-08-02] MEDS: DOCUSATE SODIUM 100 MG CAPSULE (FP) PO SCH (21:25)
[2021-08-03] MEDS ORDERED: DEXTROSE 5%-WATER - 50 ML IVPB ONE ×3 (00:37→18:22)
[2021-08-03] MEDS ORDERED: PIPERACILLIN/TAZOBACTAM 3.375 GM VIAL IVPB ONE ×3 (00:37→18:22)
[2021-08-03] MEDS: PIPERACILLIN/TAZOB 3.375 GM 3.375 GM in DEXTROSE 5%-WATER - 50 ML IVPB SCH ×3 (01:20→18:42)
[2021-08-03] MEDS: GABAPENTIN 400 MG CAPSULE PO SCH ×3 (05:44→21:42)
[2021-08-03] MEDS: NYSTATIN POWDER 100,000 UNITS/GM - 15 GM TOPICAL POWDER TP SCH (11:19)
[2021-08-03] MEDS: COLLAGENASE CLOSTRIDIUM HIST. 30 GRAMS TUBE TP SCH (11:19)
[2021-08-03] MEDS: BACLOFEN 10 MG TABLET (FP) PO SCH ×2 (11:26→21:43)
[2021-08-03] MEDS: FUROSEMIDE 40 MG TABLET (FP) PO SCH (11:26)
[2021-08-03] MEDS: AMINO ACIDS/PROTEIN HYDROLYS 30 ML LIQUID.PKT PO SCH ×2 (11:27→18:43)
[2021-08-03] MEDS: POLYETHYLENE GLYCOL (HEALTHYLAX) 3350 17 GM PACKET PO SCH (11:27)
[2021-08-03] MEDS: MULTIVITAMINS (DAILY MVI) TABLET (FP) PO SCH (11:28)
[2021-08-03] MEDS: RIVAROXABAN 20 MG TABLET PO SCH (18:43)
[2021-08-03] MEDS: DOCUSATE SODIUM 100 MG CAPSULE (FP) PO SCH (21:42)
[2021-08-04] MEDS ORDERED: DEXTROSE 5%-WATER - 50 ML IVPB ONE ×3 (02:13→16:32)
[2021-08-04] MEDS ORDERED: PIPERACILLIN/TAZOBACTAM 3.375 GM VIAL IVPB ONE ×3 (02:13→16:32)
[2021-08-04] MEDS: PIPERACILLIN/TAZOB 3.375 GM 3.375 GM in DEXTROSE 5%-WATER - 50 ML IVPB SCH ×3 (02:28→18:24)
[2021-08-04] MEDS: SODIUM PHOSPHATE/NA BIPHOS 133 ML ENEMA RC SCH ×2 (05:23)
[2021-08-04] MEDS: GABAPENTIN 400 MG CAPSULE PO SCH ×3 (05:23→21:02)
[2021-08-04] MEDS: COLLAGENASE CLOSTRIDIUM HIST. 30 GRAMS TUBE TP SCH (10:01)
[2021-08-04] MEDS: MULTIVITAMINS (DAILY MVI) TABLET (FP) PO SCH (10:11)
[2021-08-04] MEDS: POLYETHYLENE GLYCOL (HEALTHYLAX) 3350 17 GM PACKET PO SCH (10:11)
[2021-08-04] MEDS: FUROSEMIDE 40 MG TABLET (FP) PO SCH (10:11)
[2021-08-04] MEDS: NYSTATIN POWDER 100,000 UNITS/GM - 15 GM TOPICAL POWDER TP SCH (10:11)
[2021-08-04] MEDS: BACLOFEN 10 MG TABLET (FP) PO SCH ×2 (10:11→21:01)
[2021-08-04] MEDS: AMINO ACIDS/PROTEIN HYDROLYS 30 ML LIQUID.PKT PO SCH ×2 (10:11→18:24)
[2021-08-04] MEDS: RIVAROXABAN 20 MG TABLET PO SCH (18:24)
[2021-08-04] MEDS: DOCUSATE SODIUM 100 MG CAPSULE (FP) PO SCH (21:02)
[2021-08-05] MEDS ORDERED: PIPERACILLIN/TAZOBACTAM 3.375 GM VIAL IVPB ONE ×3 (01:15→17:02)
[2021-08-05] MEDS ORDERED: DEXTROSE 5%-WATER - 50 ML IVPB ONE ×3 (01:15→17:02)
[2021-08-05] MEDS: PIPERACILLIN/TAZOB 3.375 GM 3.375 GM in DEXTROSE 5%-WATER - 50 ML IVPB SCH ×3 (01:38→17:25)
[2021-08-05] MEDS: GABAPENTIN 400 MG CAPSULE PO SCH ×3 (06:07→21:24)
[2021-08-05] MEDS ORDERED: SODIUM PHOSPHATE/NA BIPHOS 133 ML ENEMA RC ONE (07:10)
[2021-08-05] MEDS: BACLOFEN 10 MG TABLET (FP) PO SCH ×2 (09:44→21:24)
[2021-08-05] MEDS: POLYETHYLENE GLYCOL (HEALTHYLAX) 3350 17 GM PACKET PO SCH (09:44)
[2021-08-05] MEDS: AMINO ACIDS/PROTEIN HYDROLYS 30 ML LIQUID.PKT PO SCH ×2 (09:44→17:25)
[2021-08-05] MEDS: MULTIVITAMINS (DAILY MVI) TABLET (FP) PO SCH (09:44)
[2021-08-05] MEDS: NYSTATIN POWDER 100,000 UNITS/GM - 15 GM TOPICAL POWDER TP SCH (09:45)
[2021-08-05] MEDS: FUROSEMIDE 40 MG TABLET (FP) PO SCH (09:45)
[2021-08-05] MEDS: COLLAGENASE CLOSTRIDIUM HIST. 30 GRAMS TUBE TP SCH (09:45)
[2021-08-05] MEDS: RIVAROXABAN 20 MG TABLET PO SCH (17:25)
[2021-08-05] MEDS: DOCUSATE SODIUM 100 MG CAPSULE (FP) PO SCH (21:24)
[2021-08-06] MEDS ORDERED: PIPERACILLIN/TAZOBACTAM 3.375 GM VIAL IVPB ONE ×3 (00:49→16:17)
[2021-08-06] MEDS ORDERED: DEXTROSE 5%-WATER - 50 ML IVPB ONE ×3 (00:49→16:17)
[2021-08-06] MEDS: PIPERACILLIN/TAZOB 3.375 GM 3.375 GM in DEXTROSE 5%-WATER - 50 ML IVPB SCH ×3 (01:50→16:59)
[2021-08-06] MEDS: SODIUM PHOSPHATE/NA BIPHOS 133 ML ENEMA RC SCH (06:32)
[2021-08-06] MEDS: GABAPENTIN 400 MG CAPSULE PO SCH ×3 (06:32→21:28)
[2021-08-06] MEDS: FUROSEMIDE 40 MG TABLET (FP) PO SCH (09:18)
[2021-08-06] MEDS: AMINO ACIDS/PROTEIN HYDROLYS 30 ML LIQUID.PKT PO SCH ×2 (09:18→16:54)
[2021-08-06] MEDS: POLYETHYLENE GLYCOL (HEALTHYLAX) 3350 17 GM PACKET PO SCH (09:18)
[2021-08-06] MEDS: COLLAGENASE CLOSTRIDIUM HIST. 30 GRAMS TUBE TP SCH (09:18)
[2021-08-06] MEDS: NYSTATIN POWDER 100,000 UNITS/GM - 15 GM TOPICAL POWDER TP SCH (09:18)
[2021-08-06] MEDS: BACLOFEN 10 MG TABLET (FP) PO SCH ×2 (09:18→21:28)
[2021-08-06] MEDS: MULTIVITAMINS (DAILY MVI) TABLET (FP) PO SCH (09:18)
[2021-08-06] MEDS: RIVAROXABAN 20 MG TABLET PO SCH (16:59)
[2021-08-06] MEDS ORDERED: ALBUTEROL SO4 2.5/IPRATROPIUM 0.5 INH SOL 3 ML VIAL.NEB. NEB ONE (17:13)
[2021-08-06] MEDS: DOCUSATE SODIUM 100 MG CAPSULE (FP) PO SCH (21:28)
[2021-08-06] MEDS: MELATONIN 5 MG TABLETS PO PRN (21:28)
[2021-08-07] MEDS ORDERED: PIPERACILLIN/TAZOBACTAM 3.375 GM VIAL IVPB ONE ×3 (00:40→17:31)
[2021-08-07] MEDS ORDERED: DEXTROSE 5%-WATER - 50 ML IVPB ONE ×3 (00:40→17:31)
[2021-08-07] MEDS: PIPERACILLIN/TAZOB 3.375 GM 3.375 GM in DEXTROSE 5%-WATER - 50 ML IVPB SCH ×3 (01:27→17:54)
[2021-08-07] MEDS: GABAPENTIN 400 MG CAPSULE PO SCH ×3 (05:48→22:18)
[2021-08-07] MEDS: MULTIVITAMINS (DAILY MVI) TABLET (FP) PO SCH (09:24)
[2021-08-07] MEDS: POLYETHYLENE GLYCOL (HEALTHYLAX) 3350 17 GM PACKET PO SCH ×2 (09:24→09:29)
[2021-08-07] MEDS: AMINO ACIDS/PROTEIN HYDROLYS 30 ML LIQUID.PKT PO SCH ×2 (09:24→17:54)
[2021-08-07] MEDS: FUROSEMIDE 40 MG TABLET (FP) PO SCH (09:24)
[2021-08-07] MEDS: BACLOFEN 10 MG TABLET (FP) PO SCH ×2 (09:24→22:18)
[2021-08-07] MEDS: NYSTATIN POWDER 100,000 UNITS/GM - 15 GM TOPICAL POWDER TP SCH (09:25)
[2021-08-07] MEDS: COLLAGENASE CLOSTRIDIUM HIST. 30 GRAMS TUBE TP SCH (09:25)
[2021-08-07] MEDS: FLUTICASONE PROP 0.05% 16 GM NASAL SPRAY NS SCH (11:59)
[2021-08-07] MEDS: RIVAROXABAN 20 MG TABLET PO SCH (17:54)
[2021-08-07] MEDS: ACETAMINOPHEN 325 MG TABLET (FP) PO PRN (22:17)
[2021-08-07] MEDS: DOCUSATE SODIUM 100 MG CAPSULE (FP) PO SCH (22:18)
[2021-08-07] MEDS: MELATONIN 5 MG TABLETS PO PRN (22:18)
[2021-08-08] MEDS ORDERED: DEXTROSE 5%-WATER - 50 ML IVPB ONE ×3 (02:50→16:52)
[2021-08-08] MEDS ORDERED: PIPERACILLIN/TAZOBACTAM 3.375 GM VIAL IVPB ONE ×3 (02:50→16:52)
[2021-08-08] MEDS: PIPERACILLIN/TAZOB 3.375 GM 3.375 GM in DEXTROSE 5%-WATER - 50 ML IVPB SCH ×3 (02:56→17:10)
[2021-08-08] MEDS: GABAPENTIN 400 MG CAPSULE PO SCH ×3 (07:00→22:52)
[2021-08-08] MEDS: SODIUM PHOSPHATE/NA BIPHOS 133 ML ENEMA RC SCH (07:10)
[2021-08-08] MEDS: AMINO ACIDS/PROTEIN HYDROLYS 30 ML LIQUID.PKT PO SCH ×2 (09:43→17:10)
[2021-08-08] MEDS: MULTIVITAMINS (DAILY MVI) TABLET (FP) PO SCH (09:44)
[2021-08-08] MEDS: POLYETHYLENE GLYCOL (HEALTHYLAX) 3350 17 GM PACKET PO SCH ×2 (09:44→09:56)
[2021-08-08] MEDS: NYSTATIN POWDER 100,000 UNITS/GM - 15 GM TOPICAL POWDER TP SCH (09:44)
[2021-08-08] MEDS: FUROSEMIDE 40 MG TABLET (FP) PO SCH (09:44)
[2021-08-08] MEDS: BACLOFEN 10 MG TABLET (FP) PO SCH (09:44)
[2021-08-08] MEDS: COLLAGENASE CLOSTRIDIUM HIST. 30 GRAMS TUBE TP SCH (09:44)
[2021-08-08] MEDS ORDERED: PT OWN MED DRAWER 7, Y5N ONE (14:35)
[2021-08-08] MEDS: METHOCARBAMOL 500 MG TABLET PO SCH ×2 (14:44→22:52)
[2021-08-08] MEDS: FLUTICASONE PROP 0.05% 16 GM NASAL SPRAY NS SCH (14:44)
[2021-08-08] MEDS: RIVAROXABAN 20 MG TABLET PO SCH (17:11)
[2021-08-08] MEDS: ACETAMINOPHEN 325 MG TABLET (FP) PO PRN (22:51)
[2021-08-08] MEDS: DOCUSATE SODIUM 100 MG CAPSULE (FP) PO SCH (22:52)
[2021-08-09] MEDS ORDERED: DEXTROSE 5%-WATER - 50 ML IVPB ONE ×2 (02:04→10:19)
[2021-08-09] MEDS ORDERED: PIPERACILLIN/TAZOBACTAM 3.375 GM VIAL IVPB ONE ×2 (02:04→10:19)
[2021-08-09] MEDS: PIPERACILLIN/TAZOB 3.375 GM 3.375 GM in DEXTROSE 5%-WATER - 50 ML IVPB SCH ×2 (02:12→10:23)
[2021-08-09] MEDS: GABAPENTIN 400 MG CAPSULE PO SCH ×2 (07:00→14:01)
[2021-08-09] MEDS ORDERED: PT OWN MED DRAWER 7, Y5N ONE (10:19)
[2021-08-09] MEDS: METHOCARBAMOL 500 MG TABLET PO SCH (10:24)
[2021-08-09] MEDS: FUROSEMIDE 40 MG TABLET (FP) PO SCH (10:24)
[2021-08-09] MEDS: AMINO ACIDS/PROTEIN HYDROLYS 30 ML LIQUID.PKT PO SCH (10:24)
[2021-08-09] MEDS: FLUTICASONE PROP 0.05% 16 GM NASAL SPRAY NS SCH (10:24)
[2021-08-09] MEDS: MULTIVITAMINS (DAILY MVI) TABLET (FP) PO SCH (10:24)
[2021-08-09] MEDS: ACETAMINOPHEN 325 MG TABLET (FP) PO PRN (10:25)
[2021-08-09] MEDS: POLYETHYLENE GLYCOL (HEALTHYLAX) 3350 17 GM PACKET PO SCH (10:25)
[2021-08-09] MEDS: NYSTATIN POWDER 100,000 UNITS/GM - 15 GM TOPICAL POWDER TP SCH (10:25)
[2021-08-09 14:57] VITALS: BP 118/71; PULSE 88; TEMP 98
== END 2021-08-09 17:23 | disposition home health service (06) | DRG 571 ==
LOC: JER 15:28 → JERBED 19:43 → J7W 07-27 01:37
PROVIDERS: ADMIT Internal Medicine; ATTEND Internal Medicine
PROC: 0JB70ZZ Excision of Back Subcutaneous Tissue and Fascia, Open Approach (ICD-10-PCS; principal; 2021-07-27)
PROC: 2W1NX6Z Compression of Right Upper Leg using Pressure Dressing (ICD-10-PCS; 2021-08-03)
DX: L89.153 Pressure ulcer of sacral region, stage 3 (principal); G82.20 Paraplegia, unspecified; L89.210 Pressure ulcer of right hip, unstageable; N31.9 Neuromuscular dysfunction of bladder, unspecified; Z86.711 Personal history of pulmonary embolism; N32.89 Other specified disorders of bladder
CPT/HCPCS: 36415; 71046-TC-FY; 73523-TC-FY; 80053; 83605; 84484; 85025; 85610; 85730; 87040; 87070; 87186; 87205; 93005; 93010; 94640; 99285-25; C9803; G0463-25; J0475; U0003; U0005

== ENCOUNTER 2022-05-09 19:47 | Emergency (ER) | payer OTHER ==
[2022-05-09 20:16] VITALS: BMI 28.3
[2022-05-09 21:54] LABS: BASO % 0.4 % (0-2.0); EOS % 5.3 % (0-4.5); HEMATOCRIT 37.1 % (35.4-49); HEMOGLOBIN 12.4 GM/dL (11.7-16.9); LYMPH % 26.5 % (8-40); MCH 27.1 pg (25.7-33.7); MCHC 33.3 g/dl (32.0-35.9); MEAN CELL VOLUME 81.3 fl (80-96); MEAN PLT VOLUME 7.8 fl (7.5-11.1); MONO % 7.4 % (3.8-10.2); NEUT % 60.4 % (42.8-82.8); PLATELET COUNT 276 10^3/uL (134-434); RBC 4.56 M/mm3 (4.00-5.60); RDW 15.4 % (11.9-15.9)
[2022-05-09 21:57] LABS: INR 2.26 (0.83-1.09); PROTHROMBIN TIME (PATIENT) 26.2 SEC (9.7-13.0)
[2022-05-09 21:59] LABS: ACTIVATED PTT 44.5 SECONDS (25.2-36.5)
[2022-05-09 22:01] LABS: ALBUMIN 3.6 g/dl (3.4-5.0); BLOOD UREA NITROGEN 9.5 mg/dL (7-18); CALCIUM 8.9 mg/dL (8.5-10.1)
[2022-05-09 22:03] LABS: CREATININE 0.9 mg/dL (0.55-1.3)
[2022-05-09 22:05] LABS: BILIRUBIN,TOTAL 0.8 mg/dL (0.2-1); TOT PROT 7.2 g/dl (6.4-8.2)
[2022-05-09 23:17] LABS: EPI CELLS >36 /uL (0-25.1); HYALINE CASTS 2 /uL (0-3.1); PH,URINE 7.5 (5.0-8.0); URINE APPEARANCE CLEAR; URINE BACTERIA 5560 /uL (0-1359); URINE BILIRUBIN NEGATIVE (NEGATIVE); URINE COLOR YELLOW; URINE GLUCOSE (UA) NEGATIVE (NEGATIVE); URINE KETONE NEGATIVE (NEGATIVE); URINE LEUK ESTERASE 3+ (NEGATIVE); URINE NITRITE NEGATIVE (NEGATIVE); URINE PROTEIN TRACE (NEGATIVE); URINE RBC 7 /uL (0-23.9); URINE UROBILINOGEN 0.2 mg/dL (0.2-1.0); URINE WBC 52 /uL (0-25.8)
[2022-05-10] MEDS ORDERED: ACETAMINOPHEN 500 MG TABLET (FP) PO ONE (00:53)
[2022-05-10] MEDS ORDERED: ACETAMINOPHEN 325 MG TABLET (FP) ONE (01:05)
[2022-05-10] MEDS ORDERED: GABAPENTIN 400 MG CAPSULE ONE (05:46)
[2022-05-10] MEDS ORDERED: GABAPENTIN 400 MG CAPSULE PO ONE (06:00)
[2022-05-10 06:39] VITALS: BP 107/55; PULSE 62; TEMP 97.6
== END 2022-05-10 08:54 | disposition home or self-care (01) ==
LOC: JER 19:47
DX: T83.511A Infection and inflammatory reaction due to indwelling urethral catheter, initial encounter (principal); R07.9 Chest pain, unspecified
CPT/HCPCS: 0241U-QW; 36415; 71275-TC; 80053; 81003; 83605; 84484; 85025; 85610; 85730; 87040; 87086; 93005; 93010; 99285-25; Q9967

== ENCOUNTER 2022-06-16 12:44 | Inpatient (IN) | payer OTHER ==
[2022-06-16] MEDS ORDERED: PIPERACILLIN/TAZOB 4.5 GM 4.5 GM in DEXTROSE 5%-WATER 100 ML IVPB ONE (13:54)
[2022-06-16] MEDS ORDERED: VANCOMYCIN 1 GM in D5W (PRE-DOCKED) 1,000 MG/250 ML IVPB ONE (13:57)
[2022-06-16] MEDS ORDERED: VANCOMYCIN/WATER FOR INJ (PEG) 1,000 MG/200 ML BAG IVPB ONE (14:23)
[2022-06-16] MEDS ORDERED: PIPERACILLIN/TAZOB 4.5 GM 4.5 GM/100 ML BAG IVPB ONE (14:23)
[2022-06-16] MEDS ORDERED: ACETAMINOPHEN 1000 MG/100 ML BAG IVPB ONE (16:16)
[2022-06-16 16:31] LABS: EOS % 5.3 % (0-4.5); HEMATOCRIT 36.1 % (35.4-49); HEMOGLOBIN 12.1 GM/dL (11.7-16.9); LYMPH % 20.9 % (8-40); MCHC 33.4 g/dl (32.0-35.9); MEAN CELL VOLUME 80.7 fl (80-96); MONO % 8.5 % (3.8-10.2); NEUT % 64.3 % (42.8-82.8); PLATELET COUNT 289 10^3/uL (134-434); RBC 4.47 M/mm3 (4.00-5.60); RDW 16.2 % (11.9-15.9); WHITE BLOOD COUNT 10.8 K/mm3 (4.0-10.0)
[2022-06-16 16:36] LABS: INR 2.92 (0.83-1.09)
[2022-06-16 16:39] LABS: ACTIVATED PTT 44.5 SECONDS (25.2-36.5)
[2022-06-16 16:49] LABS: ALBUMIN 3.3 g/dl (3.4-5.0); BLOOD UREA NITROGEN 10.6 mg/dL (7-18); CALCIUM 8.4 mg/dL (8.5-10.1)
[2022-06-16 16:52] LABS: CREATININE 0.9 mg/dL (0.55-1.3)
[2022-06-16 16:54] LABS: BILIRUBIN,TOTAL 0.9 mg/dL (0.2-1); TOT PROT 7.2 g/dl (6.4-8.2)
[2022-06-16] MEDS ORDERED: ACETAMINOPHEN INJECTION 100 ML IVPB ONE (18:27)
[2022-06-16] MEDS ORDERED: SODIUM CHLORIDE 0.9% 500 ML INFUS.BAG IV ONE (19:39)
[2022-06-16] MEDS: MUPIROCIN CA 2% TOPICAL CREAM 15 GM TUBE TP SCH (22:45)
[2022-06-16] MEDS: GABAPENTIN 400 MG CAPSULE PO SCH (23:25)
[2022-06-16] MEDS: PREGABALIN 100 MG CAPSULE PO SCH (23:25)
[2022-06-17 05:22] VITALS: BMI 33.5
[2022-06-17] MEDS: GABAPENTIN 400 MG CAPSULE PO SCH ×4 (07:20→22:40)
[2022-06-17] MEDS: MUPIROCIN CA 2% TOPICAL CREAM 15 GM TUBE TP SCH ×3 (07:21→22:44)
[2022-06-17 09:37] LABS: HEMATOCRIT 34.7 % (35.4-49); HEMOGLOBIN 11.8 GM/dL (11.7-16.9); MCH 27.7 pg (25.7-33.7); MCHC 34.1 g/dl (32.0-35.9); MEAN CELL VOLUME 81.2 fl (80-96); MEAN PLT VOLUME 7.6 fl (7.5-11.1); PLATELET COUNT 279 10^3/uL (134-434); RBC 4.27 M/mm3 (4.00-5.60); RDW 16.1 % (11.9-15.9); WHITE BLOOD COUNT 7.9 K/mm3 (4.0-10.0)
[2022-06-17 09:57] LABS: ALBUMIN 2.9 g/dl (3.4-5.0); BLOOD UREA NITROGEN 9.8 mg/dL (7-18)
[2022-06-17 09:58] LABS: CALCIUM 8.4 mg/dL (8.5-10.1); MAGNESIUM 2.5 mg/dL (1.8-2.4)
[2022-06-17 10:00] LABS: CREATININE 0.8 mg/dL (0.55-1.3)
[2022-06-17 10:01] LABS: BILIRUBIN,TOTAL 0.7 mg/dL (0.2-1); TOT PROT 6.6 g/dl (6.4-8.2)
[2022-06-17 10:02] LABS: PHOSPHOROUS 2.8 mg/dL (2.5-4.9)
[2022-06-17] MEDS: ENOXAPARIN NA (PORCINE) 40 MG/0.4 ML DISP.SYRIN SQ SCH (12:50)
[2022-06-17] MEDS: POTASSIUM CHLORIDE TABS 20 MEQ TABLET.ER (FP) PO SCH (12:50)
[2022-06-17] MEDS: SENNOSIDES 8.6MG TABLET (FP) PO SCH (12:50)
[2022-06-17] MEDS: METHOCARBAMOL 500 MG TABLET PO SCH ×2 (12:50→22:40)
[2022-06-17] MEDS: PREGABALIN 100 MG CAPSULE PO SCH ×2 (12:50→22:40)
[2022-06-17] MEDS: PIPERACILLIN/TAZOB 3.375 GM 3.375 GM in DEXTROSE 5%-WATER - 50 ML IVPB SCH ×4 (12:51→18:39)
[2022-06-17] MEDS: CHOLECALCIFEROL (VIT D3) 1,000 UNIT (25 MCG) TABLET PO SCH (12:51)
[2022-06-17] MEDS: VITAMIN B COMPLEX W/C COMBO TABLET (FP) PO SCH (15:42)
[2022-06-17] MEDS ORDERED: RIVAROXABAN 20 MG TABLET PO SCH (16:00)
[2022-06-17 16:30] LABS: PH,URINE 7.5 (5.0-8.0); URINE APPEARANCE CLEAR; URINE BILIRUBIN NEGATIVE (NEGATIVE); URINE COLOR YELLOW; URINE GLUCOSE (UA) NEGATIVE (NEGATIVE); URINE KETONE NEGATIVE (NEGATIVE); URINE LEUK ESTERASE NEGATIVE (NEGATIVE); URINE NITRITE NEGATIVE (NEGATIVE); URINE PROTEIN TRACE (NEGATIVE)
[2022-06-17 16:32] LABS: EPI CELLS 5 /uL (0-25.1); HYALINE CASTS 0 /uL (0-3.1); URINE BACTERIA 60 /uL (0-1359); URINE RBC 21 /uL (0-23.9); URINE WBC 20 /uL (0-25.8)
[2022-06-17] MEDS: FUROSEMIDE 40 MG TABLET (FP) PO SCH (22:40)
[2022-06-17] MEDS: rOPINIRole HCL 0.5 MG TABLET PO SCH (22:40)
[2022-06-18] MEDS: PIPERACILLIN/TAZOB 3.375 GM 3.375 GM in DEXTROSE 5%-WATER - 50 ML IVPB SCH ×2 (01:57→09:54)
[2022-06-18] MEDS: GABAPENTIN 400 MG CAPSULE PO SCH ×3 (05:51→21:37)
[2022-06-18] MEDS: MUPIROCIN CA 2% TOPICAL CREAM 15 GM TUBE TP SCH ×3 (05:54→21:46)
[2022-06-18 09:26] LABS: ALBUMIN 3.1 g/dl (3.4-5.0); CALCIUM 8.6 mg/dL (8.5-10.1); MAGNESIUM 2.5 mg/dL (1.8-2.4)
[2022-06-18 09:30] LABS: CREATININE 0.9 mg/dL (0.55-1.3); PHOSPHOROUS 4.1 mg/dL (2.5-4.9)
[2022-06-18 09:31] LABS: BILIRUBIN,TOTAL 0.6 mg/dL (0.2-1); TOT PROT 7.1 g/dl (6.4-8.2)
[2022-06-18 09:33] LABS: BLOOD UREA NITROGEN 8.8 mg/dL (7-18)
[2022-06-18] MEDS: POTASSIUM CHLORIDE TABS 20 MEQ TABLET.ER (FP) PO SCH (09:53)
[2022-06-18] MEDS: METHOCARBAMOL 500 MG TABLET PO SCH ×2 (09:53→21:37)
[2022-06-18] MEDS: VITAMIN B COMPLEX W/C COMBO TABLET (FP) PO SCH (09:53)
[2022-06-18] MEDS: SENNOSIDES 8.6MG TABLET (FP) PO SCH (09:53)
[2022-06-18] MEDS: CHOLECALCIFEROL (VIT D3) 1,000 UNIT (25 MCG) TABLET PO SCH (09:53)
[2022-06-18] MEDS: ENOXAPARIN NA (PORCINE) 40 MG/0.4 ML DISP.SYRIN SQ SCH (09:53)
[2022-06-18] MEDS: PREGABALIN 100 MG CAPSULE PO SCH ×2 (09:53→21:37)
[2022-06-18] MEDS ORDERED: RIVAROXABAN 20 MG TABLET PO SCH (16:00)
[2022-06-18] MEDS: rOPINIRole HCL 0.5 MG TABLET PO SCH (21:37)
[2022-06-18] MEDS: FUROSEMIDE 40 MG TABLET (FP) PO SCH (21:37)
[2022-06-18] MEDS: ZINC OXIDE 20% TOPICAL OINTMENT 30 GM TUBE TP SCH (21:54)
[2022-06-19] MEDS: MUPIROCIN CA 2% TOPICAL CREAM 15 GM TUBE TP SCH ×3 (05:53→21:20)
[2022-06-19] MEDS: GABAPENTIN 400 MG CAPSULE PO SCH ×3 (05:54→21:20)
[2022-06-19 09:25] LABS: HEMATOCRIT 37.9 % (35.4-49); HEMOGLOBIN 12.5 GM/dL (11.7-16.9); MCH 26.9 pg (25.7-33.7); MCHC 33.1 g/dl (32.0-35.9); MEAN CELL VOLUME 81.4 fl (80-96); MEAN PLT VOLUME 7.8 fl (7.5-11.1); PLATELET COUNT 369 10^3/uL (134-434); RBC 4.65 M/mm3 (4.00-5.60); RDW 16.3 % (11.9-15.9); WHITE BLOOD COUNT 6.2 K/mm3 (4.0-10.0)
[2022-06-19 09:52] LABS: ALBUMIN 3.2 g/dl (3.4-5.0); BLOOD UREA NITROGEN 8.3 mg/dL (7-18); CALCIUM 8.8 mg/dL (8.5-10.1)
[2022-06-19 09:55] LABS: CREATININE 0.9 mg/dL (0.55-1.3)
[2022-06-19 09:56] LABS: BILIRUBIN,TOTAL 0.5 mg/dL (0.2-1)
[2022-06-19 09:57] LABS: TOT PROT 7.3 g/dl (6.4-8.2)
[2022-06-19] MEDS: ENOXAPARIN NA (PORCINE) 40 MG/0.4 ML DISP.SYRIN SQ SCH (10:18)
[2022-06-19] MEDS: AMINO ACIDS/PROTEIN HYDROLYS 30 ML LIQUID.PKT PO SCH (10:19)
[2022-06-19] MEDS: CHOLECALCIFEROL (VIT D3) 1,000 UNIT (25 MCG) TABLET PO SCH (10:19)
[2022-06-19] MEDS: POTASSIUM CHLORIDE TABS 20 MEQ TABLET.ER (FP) PO SCH (10:19)
[2022-06-19] MEDS: PREGABALIN 100 MG CAPSULE PO SCH ×2 (10:19→21:20)
[2022-06-19] MEDS: SENNOSIDES 8.6MG TABLET (FP) PO SCH (10:20)
[2022-06-19] MEDS: METHOCARBAMOL 500 MG TABLET PO SCH ×2 (10:21→21:19)
[2022-06-19] MEDS: ZINC OXIDE 20% TOPICAL OINTMENT 30 GM TUBE TP SCH ×2 (10:21→21:25)
[2022-06-19] MEDS: VITAMIN B COMPLEX W/C COMBO TABLET (FP) PO SCH (10:45)
[2022-06-19] MEDS: rOPINIRole HCL 0.5 MG TABLET PO SCH (21:20)
[2022-06-19] MEDS: FUROSEMIDE 40 MG TABLET (FP) PO SCH (21:20)
[2022-06-19] MEDS: BACITRACIN 15 GM TUBE TOPICAL OINTMENT TP SCH (21:20)
[2022-06-19] MEDS: MELATONIN 5 MG TABLETS PO SCH (21:20)
[2022-06-20] MEDS: GABAPENTIN 400 MG CAPSULE PO SCH ×3 (05:49→23:37)
[2022-06-20] MEDS: MUPIROCIN CA 2% TOPICAL CREAM 15 GM TUBE TP SCH ×3 (05:51→23:39)
[2022-06-20] MEDS: ENOXAPARIN NA (PORCINE) 40 MG/0.4 ML DISP.SYRIN SQ SCH (11:30)
[2022-06-20] MEDS: POTASSIUM CHLORIDE TABS 20 MEQ TABLET.ER (FP) PO SCH (11:31)
[2022-06-20] MEDS: PREGABALIN 100 MG CAPSULE PO SCH ×2 (11:31→23:37)
[2022-06-20] MEDS: SENNOSIDES 8.6MG TABLET (FP) PO SCH ×2 (11:31→11:35)
[2022-06-20] MEDS: CHOLECALCIFEROL (VIT D3) 1,000 UNIT (25 MCG) TABLET PO SCH (11:31)
[2022-06-20] MEDS: AMINO ACIDS/PROTEIN HYDROLYS 30 ML LIQUID.PKT PO SCH (11:31)
[2022-06-20] MEDS: METHOCARBAMOL 500 MG TABLET PO SCH ×2 (11:31→23:37)
[2022-06-20] MEDS: VITAMIN B COMPLEX W/C COMBO TABLET (FP) PO SCH (11:32)
[2022-06-20] MEDS: ZINC OXIDE 20% TOPICAL OINTMENT 30 GM TUBE TP SCH ×2 (11:33→23:39)
[2022-06-20] MEDS: BACITRACIN 15 GM TUBE TOPICAL OINTMENT TP SCH ×2 (17:35→23:39)
[2022-06-20] MEDS ORDERED: RIVAROXABAN 20 MG TABLET PO SCH (18:00)
[2022-06-20] MEDS: MELATONIN 5 MG TABLETS PO SCH (23:37)
[2022-06-20] MEDS: FUROSEMIDE 40 MG TABLET (FP) PO SCH (23:37)
[2022-06-20] MEDS: rOPINIRole HCL 0.5 MG TABLET PO SCH (23:37)
[2022-06-21] MEDS: MUPIROCIN CA 2% TOPICAL CREAM 15 GM TUBE TP SCH ×3 (06:36→22:11)
[2022-06-21] MEDS: GABAPENTIN 400 MG CAPSULE PO SCH ×3 (06:36→22:10)
[2022-06-21] MEDS: AMINO ACIDS/PROTEIN HYDROLYS 30 ML LIQUID.PKT PO SCH (09:11)
[2022-06-21] MEDS: PREGABALIN 100 MG CAPSULE PO SCH ×2 (09:13→22:10)
[2022-06-21] MEDS: CHOLECALCIFEROL (VIT D3) 1,000 UNIT (25 MCG) TABLET PO SCH (09:13)
[2022-06-21] MEDS: POTASSIUM CHLORIDE TABS 20 MEQ TABLET.ER (FP) PO SCH (09:13)
[2022-06-21] MEDS: METHOCARBAMOL 500 MG TABLET PO SCH ×2 (09:13→22:11)
[2022-06-21] MEDS: SENNOSIDES 8.6MG TABLET (FP) PO SCH (09:14)
[2022-06-21] MEDS: ZINC OXIDE 20% TOPICAL OINTMENT 30 GM TUBE TP SCH ×2 (09:14→22:12)
[2022-06-21] MEDS: BACITRACIN 15 GM TUBE TOPICAL OINTMENT TP SCH ×2 (09:14→22:11)
[2022-06-21] MEDS: VITAMIN B COMPLEX W/C COMBO TABLET (FP) PO SCH (09:14)
[2022-06-21] MEDS ORDERED: FLUTICASONE PROP 0.05% 16 GM NASAL SPRAY NS PRN (09:45)
[2022-06-21 10:13] LABS: BASO % 0.6 % (0-2.0); EOS % 11.4 % (0-4.5); HEMATOCRIT 37.8 % (35.4-49); HEMOGLOBIN 12.2 GM/dL (11.7-16.9); LYMPH % 29.4 % (8-40); MCH 26.6 pg (25.7-33.7); MCHC 32.3 g/dl (32.0-35.9); MEAN CELL VOLUME 82.3 fl (80-96); MEAN PLT VOLUME 7.8 fl (7.5-11.1); MONO % 7.5 % (3.8-10.2); NEUT % 51.1 % (42.8-82.8); PLATELET COUNT 360 10^3/uL (134-434); RBC 4.59 M/mm3 (4.00-5.60); RDW 16.6 % (11.9-15.9); WHITE BLOOD COUNT 6.6 K/mm3 (4.0-10.0)
[2022-06-21 10:42] LABS: CALCIUM 8.8 mg/dL (8.5-10.1)
[2022-06-21 10:46] LABS: CREATININE 0.8 mg/dL (0.55-1.3)
[2022-06-21 12:25] LABS: INR 1.14 (0.83-1.09); PROTHROMBIN TIME (PATIENT) 13.1 SEC (9.7-13.0)
[2022-06-21] MEDS ORDERED: RIVAROXABAN 20 MG TABLET PO SCH (18:00)
[2022-06-21] MEDS: ENOXAPARIN NA (PORCINE) 100 MG/1 ML DISP.SYRIN SQ SCH (22:08)
[2022-06-21] MEDS: MELATONIN 5 MG TABLETS PO SCH (22:10)
[2022-06-21] MEDS: rOPINIRole HCL 0.5 MG TABLET PO SCH (22:11)
[2022-06-21] MEDS: FUROSEMIDE 40 MG TABLET (FP) PO SCH (22:11)
[2022-06-22] MEDS: GABAPENTIN 400 MG CAPSULE PO SCH ×3 (06:29→22:50)
[2022-06-22] MEDS: MUPIROCIN CA 2% TOPICAL CREAM 15 GM TUBE TP SCH ×3 (06:29→22:51)
[2022-06-22 08:15] LABS: BASO % 0.5 % (0-2.0); EOS % 11.1 % (0-4.5); HEMATOCRIT 36.3 % (35.4-49); LYMPH % 32.7 % (8-40); MCH 27.1 pg (25.7-33.7); MEAN CELL VOLUME 82.1 fl (80-96); MEAN PLT VOLUME 7.6 fl (7.5-11.1); MONO % 7.6 % (3.8-10.2); NEUT % 48.1 % (42.8-82.8); PLATELET COUNT 358 10^3/uL (134-434); RBC 4.42 M/mm3 (4.00-5.60); RDW 16.5 % (11.9-15.9); WHITE BLOOD COUNT 5.5 K/mm3 (4.0-10.0)
[2022-06-22] MEDS: ENOXAPARIN NA (PORCINE) 100 MG/1 ML DISP.SYRIN SQ SCH ×2 (09:03→22:51)
[2022-06-22] MEDS: POTASSIUM CHLORIDE TABS 20 MEQ TABLET.ER (FP) PO SCH (09:03)
[2022-06-22] MEDS: METHOCARBAMOL 500 MG TABLET PO SCH ×2 (09:03→22:50)
[2022-06-22] MEDS: ZINC OXIDE 20% TOPICAL OINTMENT 30 GM TUBE TP SCH ×2 (09:04→22:51)
[2022-06-22] MEDS: VITAMIN B COMPLEX W/C COMBO TABLET (FP) PO SCH (09:04)
[2022-06-22] MEDS: PREGABALIN 100 MG CAPSULE PO SCH ×2 (09:04→22:50)
[2022-06-22] MEDS: BACITRACIN 15 GM TUBE TOPICAL OINTMENT TP SCH ×2 (09:04→22:49)
[2022-06-22] MEDS: CHOLECALCIFEROL (VIT D3) 1,000 UNIT (25 MCG) TABLET PO SCH (09:04)
[2022-06-22] MEDS: SENNOSIDES 8.6MG TABLET (FP) PO SCH (09:04)
[2022-06-22] MEDS: AMINO ACIDS/PROTEIN HYDROLYS 30 ML LIQUID.PKT PO SCH (09:04)
[2022-06-22 09:07] LABS: ALBUMIN 3.4 g/dl (3.4-5.0); BLOOD UREA NITROGEN 14.9 mg/dL (7-18); CALCIUM 8.6 mg/dL (8.5-10.1); MAGNESIUM 2.5 mg/dL (1.8-2.4)
[2022-06-22 09:09] LABS: CREATININE 0.9 mg/dL (0.55-1.3)
[2022-06-22 09:11] LABS: BILIRUBIN,TOTAL 0.6 mg/dL (0.2-1)
[2022-06-22] MEDS: rOPINIRole HCL 0.5 MG TABLET PO SCH (22:50)
[2022-06-22] MEDS: FUROSEMIDE 40 MG TABLET (FP) PO SCH (22:50)
[2022-06-22] MEDS: MELATONIN 5 MG TABLETS PO SCH (22:50)
[2022-06-23] MEDS: MUPIROCIN CA 2% TOPICAL CREAM 15 GM TUBE TP SCH ×3 (06:38→21:18)
[2022-06-23] MEDS: GABAPENTIN 400 MG CAPSULE PO SCH ×3 (06:38→21:18)
[2022-06-23 10:29] LABS: BASO % 0.3 % (0-2.0); EOS % 8.5 % (0-4.5); HEMATOCRIT 36.6 % (35.4-49); HEMOGLOBIN 12.2 GM/dL (11.7-16.9); LYMPH % 34.2 % (8-40); MCH 27.5 pg (25.7-33.7); MCHC 33.4 g/dl (32.0-35.9); MEAN CELL VOLUME 82.4 fl (80-96); MEAN PLT VOLUME 7.3 fl (7.5-11.1); MONO % 6.6 % (3.8-10.2); NEUT % 50.4 % (42.8-82.8); PLATELET COUNT 339 10^3/uL (134-434); RBC 4.44 M/mm3 (4.00-5.60); RDW 16.5 % (11.9-15.9); WHITE BLOOD COUNT 5.6 K/mm3 (4.0-10.0)
[2022-06-23 10:46] LABS: ALBUMIN 3.1 g/dl (3.4-5.0); BLOOD UREA NITROGEN 11.2 mg/dL (7-18); CALCIUM 8.6 mg/dL (8.5-10.1); MAGNESIUM 2.1 mg/dL (1.8-2.4)
[2022-06-23 10:49] LABS: CREATININE 0.9 mg/dL (0.55-1.3)
[2022-06-23 10:50] LABS: BILIRUBIN,TOTAL 0.3 mg/dL (0.2-1); TOT PROT 7.2 g/dl (6.4-8.2)
[2022-06-23] MEDS: PREGABALIN 100 MG CAPSULE PO SCH ×2 (11:00→21:18)
[2022-06-23] MEDS: POTASSIUM CHLORIDE TABS 20 MEQ TABLET.ER (FP) PO SCH (11:00)
[2022-06-23] MEDS: CHOLECALCIFEROL (VIT D3) 1,000 UNIT (25 MCG) TABLET PO SCH (11:00)
[2022-06-23] MEDS: VITAMIN B COMPLEX W/C COMBO TABLET (FP) PO SCH (11:01)
[2022-06-23] MEDS: AMINO ACIDS/PROTEIN HYDROLYS 30 ML LIQUID.PKT PO SCH (11:02)
[2022-06-23] MEDS: ENOXAPARIN NA (PORCINE) 100 MG/1 ML DISP.SYRIN SQ SCH ×2 (11:02→21:18)
[2022-06-23] MEDS: SENNOSIDES 8.6MG TABLET (FP) PO SCH (11:03)
[2022-06-23] MEDS: METHOCARBAMOL 500 MG TABLET PO SCH ×2 (11:04→21:18)
[2022-06-23] MEDS: BACITRACIN 15 GM TUBE TOPICAL OINTMENT TP SCH ×2 (11:10→21:18)
[2022-06-23] MEDS: ZINC OXIDE 20% TOPICAL OINTMENT 30 GM TUBE TP SCH ×2 (11:11→21:19)
[2022-06-23] MEDS: MELATONIN 5 MG TABLETS PO SCH (21:18)
[2022-06-23] MEDS: FUROSEMIDE 40 MG TABLET (FP) PO SCH (21:18)
[2022-06-23] MEDS: rOPINIRole HCL 0.5 MG TABLET PO SCH (21:18)
[2022-06-24] MEDS: GABAPENTIN 400 MG CAPSULE PO SCH ×2 (06:18→14:37)
[2022-06-24] MEDS: MUPIROCIN CA 2% TOPICAL CREAM 15 GM TUBE TP SCH ×2 (06:18→14:37)
[2022-06-24 08:56] LABS: BASO % 0.5 % (0-2.0); EOS % 9.6 % (0-4.5); HEMATOCRIT 37.4 % (35.4-49); HEMOGLOBIN 12.2 GM/dL (11.7-16.9); LYMPH % 37.2 % (8-40); MCH 26.7 pg (25.7-33.7); MCHC 32.6 g/dl (32.0-35.9); MEAN CELL VOLUME 81.9 fl (80-96); MEAN PLT VOLUME 7.5 fl (7.5-11.1); MONO % 8.4 % (3.8-10.2); NEUT % 44.3 % (42.8-82.8); PLATELET COUNT 338 10^3/uL (134-434); RBC 4.56 M/mm3 (4.00-5.60); RDW 16.6 % (11.9-15.9); WHITE BLOOD COUNT 5.3 K/mm3 (4.0-10.0)
[2022-06-24] MEDS: ENOXAPARIN NA (PORCINE) 100 MG/1 ML DISP.SYRIN SQ SCH (09:17)
[2022-06-24] MEDS: VITAMIN B COMPLEX W/C COMBO TABLET (FP) PO SCH (09:18)
[2022-06-24] MEDS: POTASSIUM CHLORIDE TABS 20 MEQ TABLET.ER (FP) PO SCH (09:18)
[2022-06-24] MEDS: BACITRACIN 15 GM TUBE TOPICAL OINTMENT TP SCH (09:18)
[2022-06-24] MEDS: PREGABALIN 100 MG CAPSULE PO SCH (09:18)
[2022-06-24] MEDS: AMINO ACIDS/PROTEIN HYDROLYS 30 ML LIQUID.PKT PO SCH (09:18)
[2022-06-24] MEDS: SENNOSIDES 8.6MG TABLET (FP) PO SCH (09:18)
[2022-06-24] MEDS: METHOCARBAMOL 500 MG TABLET PO SCH (09:18)
[2022-06-24] MEDS: CHOLECALCIFEROL (VIT D3) 1,000 UNIT (25 MCG) TABLET PO SCH (09:19)
[2022-06-24] MEDS: ZINC OXIDE 20% TOPICAL OINTMENT 30 GM TUBE TP SCH (09:19)
[2022-06-24 09:28] LABS: ALBUMIN 3.3 g/dl (3.4-5.0); BLOOD UREA NITROGEN 9.8 mg/dL (7-18); CALCIUM 8.9 mg/dL (8.5-10.1)
[2022-06-24 09:33] LABS: BILIRUBIN,TOTAL 0.2 mg/dL (0.2-1)
[2022-06-24 09:35] LABS: CREATININE 0.8 mg/dL (0.55-1.3)
[2022-06-24 09:36] LABS: TOT PROT 6.9 g/dl (6.4-8.2)
[2022-06-24 14:09] VITALS: TEMP 97.8
[2022-06-24 15:20] VITALS: BP 120/91; PULSE 93; RESP 18
== END 2022-06-24 16:14 | disposition home or self-care (01) | DRG 593 ==
LOC: JER 12:44 → JERBED 15:05 → J8W 20:51
PROVIDERS: ADMIT Hospitalist; ATTEND Internal Medicine
DX: L89.214 Pressure ulcer of right hip, stage 4 (principal); M86.68 Other chronic osteomyelitis, other site; N31.9 Neuromuscular dysfunction of bladder, unspecified; N50.89 Other specified disorders of the male genital organs; J45.909 Unspecified asthma, uncomplicated; R50.9 Fever, unspecified; N20.0 Calculus of kidney; H54.40 Blindness, one eye, unspecified eye; Z87.820 Personal history of traumatic brain injury; Z93.50 Unspecified cystostomy status
CPT/HCPCS: 36415; 71046-TC-FY; 73502-TC-RT-FY; 73701-TC-RT; 74177-TC; 80048; 80053; 81003; 83735; 84100; 85025; 85027; 85610; 85651; 85730; 86140; 87040; 87070; 87086; 87205; 93005; 93010; 99285-25; C9803-CS; U0003; U0005

== ENCOUNTER 2024-07-21 01:35 | Emergency (ER) | payer OTHER ==
[2024-07-21 01:40] VITALS: BMI 36.0
[2024-07-21] MEDS ORDERED: AMOX TR/POT CLAV 875MG/125MG TABLETS (FP) ONE ×2 (03:33→03:41)
[2024-07-21] MEDS: AMOX TR/POT CLAV 875MG/125MG TABLETS (FP) PO ONE (03:43)
[2024-07-21 07:19] LABS: EPI CELLS 3 /uL (0-25.1); HYALINE CASTS 5 /uL (0-3.1); PH,URINE 7.5 (5.0-8.0); URINE APPEARANCE CLOUDY; URINE BACTERIA >9,000 /uL (0-1359); URINE BILIRUBIN NEGATIVE (NEGATIVE); URINE COLOR YELLOW; URINE GLUCOSE (UA) NEGATIVE (NEGATIVE); URINE KETONE NEGATIVE (NEGATIVE); URINE LEUK ESTERASE 2+ (NEGATIVE); URINE NITRITE NEGATIVE (NEGATIVE); URINE PROTEIN 2+ (NEGATIVE); URINE RBC 1298 /uL (0-23.9); URINE WBC 997 /uL (0-25.8)
[2024-07-21 13:18] VITALS: BP 120/77; PULSE 78; RESP 17; TEMP 98.1
== END 2024-07-21 13:00 | disposition home or self-care (01) ==
LOC: JER 01:35
DX: T83.511A Infection and inflammatory reaction due to indwelling urethral catheter, initial encounter (principal); K08.89 Other specified disorders of teeth and supporting structures
CPT/HCPCS: 73630-TC-LT; 73630-TC-RT-FY; 81003; 87086; 87186; 99284-25